=== PATIENT | female | born 1970 | race Caucasian/White ===

== ENCOUNTER → 2016-10-12 | Outpatient (REF) | payer OTHER ==
[~2016-10-12] MED LIST: /ATOR40TA OR; /THIA10TA OR; ACET-654 PO; AMBI12.52 PO; AMLO10TA OR; AMLO10TA2 PO; AMLO10TAB PO; ASPI1TAB PO; ASPI81TA83 OR; ASPI81TA83 PO; ATIV0.5T OR; BACT2CRE EX; BACTROBAN TOP; CALC0.5C OR; CALC1CAP31 PO; CALC600T10 PO; CLON0.1D3 TD; CLON0.2T PO; CORE25TA OR; CORE25TA PO; DIVA500T3 PO; DOXY100T OR; DRIS50002 PO; FERR325T PO; FLEXERIL PO; FOLI1TAB OR; FOLI1TAB PO; FOLITAB11 PO; HYDR25TA7 PO; HYDR50TA7 PO; IMOD2TAB14 PO; KEPP500T6 PO; KLON1TAB PO; LISI20TA PO; LOPR50TA OR; LOPR50TA PO; MULTIVIT OR; MULTIVIT PO; MULTTAB4 PO; NICO14DI3 TD; NICO21DI4 TD; No Historical Meds; PAXI20TA OR; PAXI20TA PO; POTA-77 PO; RENV2TAB PO; SIMV20TA2 PO; THIA100T OR; THIA50CA PO; TRAZ50TA OR; VITA100T2 PO; ZOCO20TA PO; ZOLO100T PO; ZOLO50TA OR; chlorthalidone PO
[2016-10-12 12:32] LABS: CALCIUM LEVEL 9.8 MG/DL (8.5-10.1); CREATININE FOR GFR 2.28 MG/DL (0.55-1.02); GLOMERULAR FILTRATION RATE 24.3 (>58); POTASSIUM SERUM 4.7 MEQ/L (3.5-5.1)
== END ==
LOC: M SFHCPLAZ 09:55
PROVIDERS: ATTEND Family Medicine
DX: I15.9 Secondary hypertension, unspecified (principal)

== ENCOUNTER → 2017-01-23 | Outpatient (REF) | payer OTHER ==
[~2017-01-23] MED LIST changes: -IMOD2TAB14 PO; +IMOD2TAB16 PO
[2017-01-26 00:06] LABS: IgA ULTRASENSITIVE 150.4 mg/dL (72-321)
== END ==
LOC: M SFHCPLAZ 10:54
PROVIDERS: ATTEND Family Medicine
DX: K58.0 Irritable bowel syndrome with diarrhea (principal)

== ENCOUNTER → 2017-07-08 | Outpatient (REF) | payer OTHER ==
[~2017-07-08] MED LIST changes: -CALC600T10 PO; +CALC600T31 PO; +FERR1TAB8 PO; -FERR325T PO; +KEPP1TAB PO; -KEPP500T6 PO
[2017-07-08 16:28] LABS: CALCIUM LEVEL 9.8 MG/DL (8.5-10.1); CREATININE FOR GFR 2.02 MG/DL (0.55-1.02); GLOMERULAR FILTRATION RATE 27.9 (>58); POTASSIUM SERUM 4.8 MEQ/L (3.5-5.1)
== END ==
LOC: M SFHCPLAZ 14:57
PROVIDERS: ATTEND Family Medicine
DX: I12.9 Hypertensive chronic kidney disease with stage 1 through stage 4 chronic kidney disease, or unspecified chronic kidney disease (principal)

== ENCOUNTER → 2017-07-10 | Outpatient (CLI) | payer OTHER ==
--- NOTE | 2017-07-10 10:12 | REP ---
Bilateral screening digital mammogram: There are no palpable abnormalities or other breast complaints. The patient states she/he had a clinical breast exam in June 2017. Comparison is 05/07/2016. There are no other comparisons. There is extremely dense heterogeneous breast parenchyma, unchanged. This may lower the sensitivity of mammography. There are benign calcifications. There has been no interval development of masses, areas of structural distortion or clusters of microcalcifications typical of malignancy. Impression: There is no evidence of malignancy. BI-RADS category 2 benign findings. The patient should have a repeat mammogram in 1 year. This mammogram was interpreted with the aid of an FDA-approved computer-aided detection system. A. Negative x-ray reports should not delay biopsy if a dominant or clinically suspicious mass is present. B. Four to eight percent of cancers are not identified by x-ray. C. Adenosis and dense breasts may obscure an underlying neoplasm. The patient letter being requested is M1 dense breasts . Signed by Ha Jesus MD 07/10/2017 07:54 P
== END ==
LOC: M WHC 07:32
PROVIDERS: ATTEND Nurse Practitioner Family
DX: Z12.31 Encounter for screening mammogram for malignant neoplasm of breast (principal)

== ENCOUNTER → 2017-11-20 | Outpatient (REF) | payer OTHER ==
[2017-11-20 11:52] LABS: TOTAL 25(OH) VITAMIN D 14.2 NG/ML (30.0-100.0)
== END ==
LOC: M SFHCPLAZ 08:58
DX: E55.9 Vitamin D deficiency, unspecified (principal)
CPT/HCPCS: 82306

== ENCOUNTER → 2018-08-11 | Outpatient (REF) | payer OTHER ==
[2018-08-11 22:31] LABS: CHLAMYDIA DNA AMPLIFICATION NEGATIVE (NEGATIVE); GC DNA AMPLIFICATION NEGATIVE (NEGATIVE)
== END ==
LOC: M SFHCWAGY 15:42
DX: Z11.3 Encounter for screening for infections with a predominantly sexual mode of transmission (principal)

== ENCOUNTER → 2019-01-07 | Outpatient (CLI) | payer OTHER ==
[~2019-01-07] MED LIST changes: -/ATOR40TA OR; -AMLO10TA2 PO; +AMLO10TA5 PO; -ASPI1TAB PO; +ASPI81TA26 PO; -CALC0.5C OR; +CALC0.5C14 OR; -DIVA500T3 PO; +DIVA500T94 PO; -DRIS50002 PO; +DRIS50003 PO; +LIPI1TAB2 OR; -VITA100T2 PO; +VITA100T8 PO
--- NOTE | 2019-01-07 15:15 | REPMRS ---
Patient History The patient states she had a clinical breast exam in 12/2018. No known family history of cancer. Digital Woman Screen Mammo: January 07, 2019 - Exam #: [id number] Bilateral CC and MLO view(s) were taken. Technologist: Gin Regan, Technologist Prior study comparison: July 10, 2017, digital woman screen mammo performed at [facility]. May 07, 2016, digital woman screen mammo performed at [facility]. FINDINGS: The breast tissue is extremely dense which could obscure a lesion on mammography. There is an extremely dense symmetrical pattern of residual fibroglandular tissue. There has been no change in the appearance of the mammogram from the previous studies. There is no interval development of dominant mass, archetectural distortion, or microcalcific cluster suggestive of malignancy. 3-D tomosynthesis shows no additional findings. Assessment: BI-RADS/ACR category 1 mammogram. Negative Mammogram. Recommendation Routine screening mammogram of both breasts in 1 year (for women over age 40). This patient's Lifetime Breast Cancer RIsk is estimated at 10.7 %. This mammogram was interpreted with the aid of an FDA-approved computer-aided dectection system. Electronically Signed By: Bj Finney MD 01/07/19 0972
== END ==
LOC: M WHC 09:47
PROVIDERS: ATTEND Nurse Practitioner Family
DX: Z12.31 Encounter for screening mammogram for malignant neoplasm of breast (principal)

== ENCOUNTER → 2019-01-07 | Outpatient (REF) | payer OTHER ==
[2019-01-07 14:24] LABS: HEPATITIS B SURFACE ANTIGEN NEGATIVE (NEGATIVE); HIV 1&2 SCREEN CENTAUR NEGATIVE (NEGATIVE)
[2019-01-07 15:09] LABS: CHLAMYDIA DNA AMPLIFICATION NEGATIVE (NEGATIVE); GC DNA AMPLIFICATION NEGATIVE (NEGATIVE)
[2019-01-09 14:12] LABS: HPV HYBRID CAPTURE II Negative (Negative)
== END ==
LOC: M SFHCWAGY 11:08
PROVIDERS: ATTEND Nurse Practitioner Family
DX: Z11.3 Encounter for screening for infections with a predominantly sexual mode of transmission (principal); Z12.4 Encounter for screening for malignant neoplasm of cervix

== ENCOUNTER → 2019-03-07 | Outpatient (CLI) | payer OTHER ==
[2019-03-07 10:21] LABS: BASO % 0.3 % (0.0-1.0); EOS # 0.1 10^3/uL (0.0-0.50); HEMATOCRIT 46.5 % (36.0-47.0); HEMOGLOBIN 15.4 g/dl (12.0-15.5); LYMPH # 1.4 10^3/uL (1.5-4.5); LYMPH % 18.5 % (24.0-44.0); MEAN CORPUSCULAR HEMOGLOBIN 29.9 pg (27.0-33.0); MEAN CORPUSCULAR HGB CONC 33.1 g/dl (32.0-36.5); MEAN CORPUSCULAR VOLUME 90.3 fl (80.0-96.0); MONO # 0.4 10^3/uL (0.0-0.8); MONO % 4.7 % (0.0-5.0); NEUTROPHILS # 5.8 10^3/uL (1.8-7.7); NEUTROPHILS % 75.1 % (36.0-66.0); PLATELET COUNT, AUTOMATED 212 10^3/uL (150-450); RED BLOOD COUNT 5.15 10^6/uL (4.00-5.40); WHITE BLOOD COUNT 7.7 10^3/uL (4.0-10.0)
[2019-03-07 10:49] LABS: ALBUMIN 3.9 GM/DL (3.2-5.2); BILIRUBIN,TOTAL 0.6 MG/DL (0.2-1.0); CALCIUM LEVEL 8.9 MG/DL (8.5-10.1); CREATININE FOR GFR 2.24 MG/DL (0.55-1.30); GLOMERULAR FILTRATION RATE 24.6 (>51); POTASSIUM SERUM 4.9 MEQ/L (3.5-5.1); TOTAL PROTEIN 6.7 GM/DL (6.4-8.2); URIC ACID 7.7 MG/DL (2.6-6.0)
[2019-03-09 11:12] LABS: PTH INTACT 277.7 PG/ML (18.5-88.0); TOTAL 25(OH) VITAMIN D 25.1 NG/ML (30.0-100.0)
== END ==
LOC: M LAB 09:30
PROVIDERS: ATTEND Student in an Organized Health Care Education/Training Program
DX: I16.0 Hypertensive urgency (principal); N18.4 Chronic kidney disease, stage 4 (severe)

== ENCOUNTER → 2020-03-02 | Outpatient (CLI) | payer OTHER ==
[~2020-03-02] MED LIST changes: -LISI20TA PO; +LISI20TA19 PO; +SIMV20TA22 PO
--- NOTE | 2020-03-02 11:24 | REPMRS ---
Patient History The patient states she had a clinical breast exam in February 2020. No known family history of cancer. 3D TOMOSYNTHESIS WAS PERFORMED. [facility] lifetime risk for breast cancer is 10.5%. NESTOR Manuel Digital Woman Screen Mammo: March 02, 2020 - Exam #: [id number] Bilateral CC and MLO view(s) were taken. Technologist: Marietta Rodriguez, Technologist Prior study comparison: January 07, 2019, bilateral digital woman screen mammo performed at [facility]. July 10, 2017, digital woman screen mammo performed at [facility]. FINDINGS: The breast tissue is heterogeneously dense. This may lower the sensitivity of mammography. There has been no change in the appearance of the mammogram from the prior studies. There is a moderate amount of residual fibroglandular tissue which is fairly symmetric. There is no interval development of dominant mass, areas of architectural distortion, or clustered microcalcification typical of malignancy. Assessment: BI-RADS/ACR category 1 mammogram. Negative Mammogram. Recommendation Routine screening mammogram in 1 year (for women over age 40). This mammogram was interpreted with the aid of an FDA-approved computer-aided dectection system. Electronically Signed By: Ha Altamirano MD 03/02/20 [id number]
== END ==
LOC: M WHC 09:21
PROVIDERS: ATTEND Nurse Practitioner Family
DX: Z12.31 Encounter for screening mammogram for malignant neoplasm of breast (principal)

== ENCOUNTER → 2020-10-31 | Outpatient (REF) | payer OTHER ==
[~2020-10-31] MED LIST changes: -AMLO10TA5 PO; +AMLO1TAB25 PO; -LISI20TA19 PO; +LISI20TA35 PO
[2020-10-31 18:29] LABS: TOTAL PROTEIN 7.5 GM/DL (6.4-8.2)
[2020-11-02 12:33] LABS: ALBUMIN 4.69 GM/DL (3.29-5.55); ALBUMIN % 62.5 % (55.8-66.1); ALPHA-1-GLOBULIN % 4.9 % (2.9-4.9); ALPHA-1-GLOBULINS 0.37 GM/DL (0.17-0.41); ALPHA-2-GLOBULINS 0.85 GM/DL (0.42-0.99); ALPHA-2-GLOBULINS % 11.3 % (7.1-11.8); BETA-1-GLOBULINS % 6.4 % (4.7-7.2); BETA-2-GLOBULINS % 4.4 % (3.2-6.5); GAMMA GLOBULIN % 10.5 % (11.1-18.8)
[2020-11-02 12:34] LABS: BETA-1-GLOBULINS 0.48 GM/DL (0.28-0.60); BETA-2-GLOBULINS 0.33 GM/DL (0.19-0.55); GAMMA GLOBULINS 0.79 GM/DL (0.65-1.58)
[2020-11-02 18:07] LABS: FREE KAPPA LIGHT CHAINS SERUM 33.3 mg/L (3.3-19.4); FREE LAMBDA LIGHT CHAINS SERUM 25.2 mg/L (5.7-26.3); KAPPA/LAMBDA RATIO SERUM 1.32 (0.26-1.65)
== END ==
LOC: M LAB REF 16:56
PROVIDERS: ATTEND Internal Medicine Nephrology
DX: N18.4 Chronic kidney disease, stage 4 (severe) (principal); R80.1 Persistent proteinuria, unspecified

== ENCOUNTER → 2021-07-11 | Outpatient (REF) | payer OTHER | LOC: M LAB REF 13:24 | PROVIDERS: ATTEND Nurse Practitioner Family | DX: N18.4 Chronic kidney disease, stage 4 (severe) (principal) ==

== ENCOUNTER 2021-08-19 08:39 | Emergency (ER) | payer OTHER ==
[~2021-08-19] VITALS: Ht 162.6 cm; Wt 48.2 kg
--- OUTSIDE RECORDS SUMMARY | 2021-08-19 08:48 | CCD ---
Author Author [facility] Organization [facility] Address Unknown Phone Unavailable Care Team Providers Care Orthotist Prosthetist Name Role Phone Pratik Gray Unavailable PROBLEMS Type Condition ICD9-CM Code SDS12-IT Code Onset Dates Condition S tatus W/U Status Risk SNOMED Code Notes Problem Renal hypertension I12.9 Active confirmed 2 0874620 Problem Secondary hyperparathyroidism (of renal origin) N2 5.81 Active confirmed 24839114 Problem Hyperlipidemia E78.5 Active confirmed 72368 004 Problem Irritable bowel syndrome with diarrhea K58.0 A ctive confirmed 145206443 Problem Anxiety and depression F41.8 Active confirmed 922707736 Problem Social anxiety disorder F40.10 Active confirmed 63067568 Problem Cigarette nicotine dependence without complication F17.210 Active confirmed 82256950 Problem Chronic kidney disease, stage IV (severe) N18.4 Active confirmed 030400329 Problem Decreased visual acuity H54.7 Active confirmed 36588478 Problem Alcohol abuse F10.10 Active confirmed 756023 05 Problem Vitamin D deficiency E55.9 Active confirmed 11154449 Problem Seizure disorder G40.909 Active confirmed 12 9337969 Problem Other sequelae of cerebral infarction I69.398 Ac tive confirmed 419008234811612 Problem Seasonal allergies J30.2 Active confirmed 4 40555698 ALLERGIES Allergen (clinical drug ingredient) Drug/Non Drug Allergy do cumented on EMR Reaction Allergy Type Onset Date Status hazelnuts gout Non Drug Allergy Active Morphine Sulfate Confusion Drug Allergy Active Cashews Sick to stomach Non Drug Allergy Act usha ENCOUNTERS from 1968 to 2021-06-29 Encounter Location Date Provider Diagnosis [facility] GME Resident [address] [phone] [place] [address] 27 May, 2021 Pratik Isaac IMMUNIZATIONS Vaccine Route Administration Date Status Pneumococcal Adult 0.5mL Pneumovax 23 IM Intramuscular Apr 30, 018 Administered TDAP 0.5mL (Boostrix) IM Intramuscular February 16, 2014 Administe red TD Adult 0.5mL Tetanus Unknown February 16, 2014 Pending Influenza 6mo & up Fluzone IM Intramuscular Sep 12, 2018 Admi nistered Influenza 6mo & up Fluzone Unknown Jul 10, 2017 Other s Influenza 6mo & up Fluzone IM Intramuscular Jul 08, 2017 Admi nistered Influenza 6mo & up Fluzone IM Intramuscular Jul 16, 2016 Admi nistered Influenza 6mo & up Fluzone IM Intramuscular Oct 22, 2014 Admi nistered SOCIAL HISTORY Tobacco Use: Social History Observation Description Date Details (start date - stop date) Current Smoker Sex Assigned At : Social History Observation Description Sex Assigned At Unknown Audit Question Answer Notes Total Score: 0 Interpretation: Alcohol Education Language: Question Answer Notes Languages spoken: Nepali Buddhism: Question Answer Notes Buddhism 08 Confucianist Sexual Hx: Question Answer Notes Had sex in the last 12 months (vaginal, oral, or anal)? Yes LMP: 05/12/2017 Have you ever had an STD? No Prevention Strategies discussed: Condoms with Men only Use protection? Yes How often? All of the time Drug and Alcohol Question Answer Notes Total Score: 0 Interpretation: No problems reported Alcohol Screening: Question Answer Notes Did you have a drink containing alcohol in the past year? No Points 0 Interpretation Negative Tobacco Use: Question Answer Notes Are you a: current smoker Patient counseled on the dangers of tobacco use and urged to quit: 03/02/2020 How many cigarettes a day do you smoke? 6-10 Are you interested in quitting? Not ready to quit REASON FOR REFERRAL No Information VITAL SIGNS No information MEDICATIONS Medication SIG (Take, Route, Frequency, Duration) Notes Start Da te End Date Status Zoloft 100 MG 1 tablet Orally Once a day for 30 days Active Aspir-81 81 MG 1 tablet Orally Once a day Active Vitamin B-1 100 MG 1 tablet Orally Once a day for 30 day(s) Active Divalproex Sodium 500 MG 1 tab Orally twice daily for 90 Not-Taking amLODIPine Besylate 10 MG 1 tablet Orally Once a day for 90 days Active Blood Pressure Monitor - as directed; needs easy bp r eading device for small arms as directed, ICD10: I12.9 bid for 1000 days Feb, Not-Taking hydrALAZINE HCl 25 mg 1 tablet with food Orally twice daily for 90 Active Triamcinolone Acetonide 0.1 % 1 application Externally Twice a day for 14 days Sep, Active Labetalol HCl 100 MG 2 tablets in the morning and 1 at night Orally Twice a day for 90 days Active Lisinopril 20 MG 1 tablet Orally Once a day for 30 day(s) Apr, Active PROCEDURES No Information RESULTS No Results REASON FOR VISIT who's my new doctor MEDICAL (GENERAL) HISTORY Type Description Date Medical History Hypertension Goal < 140/90 Medical History Kidney failure from hypertension Medical History CVA x 2 Medical History Hyperlipidemia (ASCVD 1.7% 03/2016) Medical History Elevated PTH likely secondary to kidney disease Medical History Hypokalemia Medical History Hx of cellulitis in left arm after IV in sertion Medical History Seizure Disorder: last one 2015 Medical History Hx of Genital Warts Surgical History Denies surgery Hospitalization History [facility] for CVA spec ialist - there for about two weeks, started rehab 08/19/2011 Hospitalization History [facility] for one night and was transferre d to [facility] 08/17/11 Hospitalization History seizures 04/17/2014 Goals Section No Information Health Concerns No Information MEDICAL EQUIPMENT No Information MENTAL STATUS No Information FUNCTIONAL STATUS No Information ASSESSMENTS No Information PLAN OF TREATMENT Medication Medication Name Sig Start Date Stop Date Lisinopril 20 MG 1 tablet Orally Once a day for 30 day(s) Apr Insurance Providers Payer Name Payer Address Payer Phone Insured Name Patient Relati onship to Insured Coverage Start Date Coverage End Date [facility] COMMUN[facility] PLAN [facility] [address] [facility] [phone] CHIVO SHEIKH self
--- OUTSIDE RECORDS SUMMARY | 2021-08-19 08:48 | CCD ---
Author Author [facility] Organization [facility] Address Unknown Phone Unavailable Care Team Providers Care Estimator Paperboard Boxes Name Role Phone Pratik Gray Unavailable PROBLEMS Type Condition ICD9-CM Code TAZ32-EB Code Onset Dates Condition S tatus W/U Status Risk SNOMED Code Notes Problem Renal hypertension I12.9 Active confirmed 2 8193726 Problem Secondary hyperparathyroidism (of renal origin) N2 5.81 Active confirmed 53034006 Problem Hyperlipidemia E78.5 Active confirmed 59811 004 Problem Irritable bowel syndrome with diarrhea K58.0 A ctive confirmed 705254905 Problem Anxiety and depression F41.8 Active confirmed 327015894 Problem Social anxiety disorder F40.10 Active confirmed 98405126 Problem Cigarette nicotine dependence without complication F17.210 Active confirmed 40668710 Problem Chronic kidney disease, stage IV (severe) N18.4 Active confirmed 382149657 Problem Decreased visual acuity H54.7 Active confirmed 23111736 Problem Alcohol abuse F10.10 Active confirmed 943073 05 Problem Vitamin D deficiency E55.9 Active confirmed 58302905 Problem Seizure disorder G40.909 Active confirmed 12 2739827 Problem Other sequelae of cerebral infarction I69.398 Ac tive confirmed 006761692650263 Problem Seasonal allergies J30.2 Active confirmed 4 95304077 ALLERGIES Allergen (clinical drug ingredient) Drug/Non Drug Allergy do cumented on EMR Reaction Allergy Type Onset Date Status hazelnuts gout Non Drug Allergy Active Morphine Sulfate Confusion Drug Allergy Active Cashews Sick to stomach Non Drug Allergy Act usha ENCOUNTERS from 1968 to 2021-05-26 Encounter Location Date Provider Diagnosis [facility] GME Resident [address] [phone] [place] [address] Apr, Pratik Isaac IMMUNIZATIONS Vaccine Route Administration Date Status Pneumococcal Adult 0.5mL Pneumovax 23 IM Intramuscular Apr 30 018 Administered TDAP 0.5mL (Boostrix) IM Intramuscular [...] Education Language: Question Answer Notes Languages spoken: Greek Taoism: Question Answer Notes Taoism 08 Presybeterian Sexual Hx: Question Answer Notes Had sex [...] Information RESULTS No Results REASON FOR VISIT Refill MEDICAL (GENERAL) HISTORY Type Description Date Medical History Hypertension Goal < 140/90 Medical History Kidney failure from hypertension Medical History CVA x 2 Medical History Hyperlipidemia (ASCVD 1.7% 03/2016) Medical History Elevated PTH likely secondary to kidney disease Medical History Hypokalemia Medical History Hx of cellulitis in left arm after IV in sertion Medical History Seizure Disorder: last 2015 Medical History Hx of Genital Warts Surgical History Denies surgery Hospitalization History [facility] for CVA spec ialist - there for about two weeks, started rehab 08/19/2011 Hospitalization History [facility] for one night and was [facility] 08/[facility]/11 Hospitalization History seizures 04/17/2014 Goals Section [...] Insured Coverage Start Date Coverage End Date [facility] COMMUNITY PLAN [facility] [address] [facility] [phone] CHIVO SHEIKH self
--- OUTSIDE RECORDS SUMMARY | 2021-08-19 08:48 | CCD ---
Author Author [facility] Organization [facility] Address Unknown Phone Unavailable Care Team Providers Care Scraper Loader Operator Name Role Phone Markos Holder Unavailable PROBLEMS Type Condition ICD9-CM Code PTN98-UD Code Onset Dates Condition S tatus W/U Status Risk SNOMED Code Notes Problem Renal hypertension I12.9 Active confirmed 2 1440901 Problem Secondary hyperparathyroidism (of renal origin) N2 5.81 Active confirmed 77962853 Problem Hyperlipidemia E78.5 Active confirmed 16014 004 Problem Irritable bowel syndrome with diarrhea K58.0 A ctive confirmed 366349356 Problem Anxiety and depression F41.8 Active confirmed 993737104 Problem Social anxiety disorder F40.10 Active confirmed 48653183 Problem Cigarette nicotine dependence without complication F17.210 Active confirmed 93001143 Problem Chronic kidney disease, stage IV (severe) N18.4 Active confirmed 355204472 Problem Decreased visual acuity H54.7 Active confirmed 08391445 Problem Alcohol abuse F10.10 Active confirmed 805363 05 Problem Vitamin D deficiency E55.9 Active confirmed 86623516 Problem Seizure disorder G40.909 Active confirmed 12 8778338 Problem Other sequelae of cerebral infarction I69.398 Ac tive confirmed 985685973007398 Problem Seasonal allergies J30.2 Active confirmed 4 19071958 ALLERGIES Allergen (clinical drug ingredient) Drug/Non Drug Allergy do cumented on EMR Reaction Allergy Type Onset Date Status Tree Nuts Sick to stomach Drug Allergy Active Morphine Sulfate Confusion Drug Allergy Active hazelnuts gout Non Drug Allergy Active ENCOUNTERS from 1968 to 2021-08-15 Encounter Location Date Provider Diagnosis [facility] GME Resident [address] [phone] [place] [address] Jun,1 Markos [facility] IMMUNIZATIONS Vaccine Route Administration Date Status Pneumococcal Adult 0.5mL Pneumovax 23 IM Intramuscular Apr 30, 018 Administered TDAP 0.5mL (Boostrix) IM Intramuscular February 16, 2014 Administe red TD PED 0.5mL Tetanus Unknown February 16, 2014 Pending [...] Education Language: Question Answer Notes Languages spoken: Kyrgyz Protestant: Question Answer Notes Protestant 08 Congregational Sexual Hx: Question Answer Notes Had sex [...] Information RESULTS No Results REASON FOR VISIT confused MEDICAL (GENERAL) HISTORY Type Description Date Medical [...] Warts Surgical History Denies surgery Hospitalization History [facility] for CVA spec ialist - there for about two weeks, started rehab 08/19/2011 Hospitalization History [facility] for one night and was transferre d to [facility] 08/17/11 Hospitalization History seizures 04/17/2014 Goals Section No Information Health Concerns No Information MEDICAL EQUIPMENT No Information MENTAL STATUS No Information FUNCTIONAL STATUS No Information ASSESSMENTS No Information PLAN OF TREATMENT Medication Medication Name Sig Start Date Stop Date Lisinopril 20 MG 1 tablet Orally Once a day for 30 day(s) Apr Next Appt Details Provider Name:Sergio Mckay Debbie, 2 021-11-24 08:30:00 AM, [address] , , [place], [address], Insurance Providers Payer Name Payer Address Payer Phone Insured Name Patient Relati onship to Insured Coverage Start Date Coverage End Date [facility] COMMUNITY PLAN [facility] [address] [facility] [phone] CHIVO SHEIKH self
--- OUTSIDE RECORDS SUMMARY | 2021-08-19 08:48 | CCD ---
Author Author [facility] Organization [facility] Address Unknown Phone Unavailable Support Name Relationship Address Phone JOANNA RODRIGUEZ Next Of Kin [address] [facility] [address] [place] [address] REECE PICKERING Next Of Kin [address] [place] [address] DISABLED Next Of Kin Unknown Unavailable UE Next Of Kin Unknown Unavailable [place] [address] ILEANAPARVEZ LELAND Next Of Kin [address] [place] [address] ANUSHAMARCELAYN Next Of Kin [address] [facility] [address] [place] [address] JOANNA RODRIGUEZ ECON [address] [place] [address] Unavailable ileanakim mercedesshua ECON [address] [facility] [address] [place] [address] Unavailable Re-disclosure Warning The records that you are about to access may contain information from federally-assisted alcohol or drug abuse programs. If such information is present, then the following federally mandated warning applies: This information has been disclosed to you from records protected by federal confidentiality rules (42 CFR part 2). The federal rules prohibit you from making any further disclosure of this information unless further disclosure is expressly permitted by the written consent of the person to whom it pertains or as otherwise permitted by 42 CFR part 2. A general authorization for the release of medical or other information is NOT sufficient for this purpose. The Federal rules restrict any use of the information to criminally investigate or prosecute any alcohol or drug abuse patient.The records that you are about to access may contain highly sensitive health information, the redisclosure of which is protected by Article 27-F of the [facility] Public Health law. If you continue you may have access to information: Regarding HIV / AIDS; Provided by facilities licensed or operated by the [facility] Office of Mental Health; or Provided by the [facility] Office for People With Developmental Disabilities. If such information is present, then the following [facility] mandated warning applies: This information has been disclosed to you from confidential records which are protected by state law. State law prohibits you from making any further disclosure of this information without the specific written consent of the person to whom it pertains, or as otherwise permitted by law. Any unauthorized further disclosure in violation of state law may result in a fine or chcf sentence or both. A general authorization for the release of medical or other information is NOT sufficient authorization for further disc losure. Family History Family Member Name Family Member Gender Family Member Status Date o f Status Description Data Source(s) Unknown Unknown Problem [facility] ([facility] Encounters Encounter Providers Location Date Indications Data Source(s ) Unknown [address] [facility] [id number] 07/25/2021 12:00:00 AM EDT eCW1 ([facility]) Unknown [address] [facility] [address] 06/26/2021 12:00:00 AM EDT eCW1 ([facility]) Unknown [address] [facility] [place] [address] 05/22/2021 12:00:00 AM EDT eCW1 ([facility]) Unknown [address] [facility] [place] [address] 05/15/2021 12:00:00 AM EDT eCW1 ([facility]) Unknown [address] [facility] [address] 03/24/2021 12:00:00 AM EDT eCW1 ([facility] Outpatient [address] [facility] [place] [address] 03/20/2021 12:00:00 AM EDT eCW1 ([facility]) Unknown [address] [facility] [place] [address] 03/04/2021 12:00:00 AM EDT eCW1 ([facility]) Unknown [address] [facility] [address] 02/20/2021 12:00:00 AM EDT eCW1 ([facility]) [place] [address] [facility] [place] [address] 02/08/2021 12:00:00 AM EDT eCW1 ([facility]) Unknown [address] [facility] [place] [address] 01/19/2021 12:00:00 AM EDT eCW1 ([facility]) Unknown [address] [facility] [place] [address] 01/10/2021 12:00:00 AM EDT eCW1 ([facility]) [place] [address] [facility] [place] [address] 01/04/2021 12:00:00 AM EDT eCW1 ([facility]) [place] [address] [facility] [place] [address] 12/29/2020 12:00:00 AM EDT eCW1 ([facility]) [place] [address] [facility] [place] [address] 12/26/2020 12:00:00 AM EDT eCW1 ([facility]) [place] [address] [facility] [place] [address] 12/15/2020 12:00:00 AM EDT eCW1 ([facility]) Unknown [address] [facility] [place] [address] 12/14/2020 12:00:00 AM EDT eCW1 ([facility]) Unknown [address] [facility] [place] [address] 12/05/2020 12:00:00 AM EST eCW1 ([facility]) [place] [address] [facility] [place] [address] 11/24/2020 12:00:00 AM EST eCW1 ([facility]) [place] [address] [facility] [place] [address] 11/14/2020 12:00:00 AM EST eCW1 ([facility]) [place] [address] [facility] [place] [address] 11/10/2020 12:00:00 AM EST eCW1 ([facility]) [place] [address] [facility] [place] [address] 10/26/2020 12:00:00 AM EST eCW1 ([facility]) Unknown [address] [facility] [place] [address] 10/14/2020 12:00:00 AM EST eCW1 ([facility]) [place] [address] [facility] [place] [address] 09/19/2020 12:00:00 AM EST eCW1 ([facility]) [place] [address] [facility] [place] [address] 09/12/2020 12:00:00 AM EST eCW1 ([facility]) Immunizations Vaccine Date Status Description Data Source(s) COVID-19 VACCINE Moderna 08/10/2021 12:00:00 AM EST completed [facility] Vaccine Series Complete: YESThis Data wa s Submitted to [facility] Via [employer]. COVID-19 VACCINE Moderna 01/11/2021 12:00:00 AM EDT completed [facility] Vaccine Series Complete: YESThis Data wa s Submitted to [facility] [employer]. COVID-19 VACCINE Moderna 12/14/2020 12:00:00 AM EDT completed [facility] Vaccine Series Complete: NOThis Data was Submitted to [facility] [employer]. Medications Medication Brand Name Start Date Product Form Dose Route Admi nistrative Instructions Pharmacy Instructions Status Indications Reaction Description Data Source(s) Lisinopril 20 MG Oral Tablet Lisinopril 20 MG 05/26/2021 12:00:00 A M EDT 1.0 {tablet} active Lisinopril 20 MG eCW1 ( [facility]) Lisinopril 20 MG Oral Tablet Lisinopril 20 MG 05/26/2021 12:00:00 A M EDT 1.0 {tablet} active Lisinopril 20 MG eCW1 ( [facility]) Lisinopril 20 MG Oral Tablet Lisinopril 20 MG 05/26/2021 12:00:00 A M EDT 1.0 {tablet} active Lisinopril 20 MG eCW1 ( [facility]) 20 mg 05/23/2021 12:00:00 AM EDT tablet 30 TAKE ONE TABLET BY MOUTH EVERY DAY TAKE ONE TABLET BY MOUTH EVERY DAY SOLD: 05/29/2021 [facility] 20 mg 05/23/2021 12:00:00 AM EDT tablet 30 TAKE ONE TABLET BY MOUTH EVERY DAY TAKE ONE TABLET BY MOUTH EVERY DAY SOLD: 07/04/2021 [facility] 10 mg 03/06/2021 12:00:00 AM EDT tablet 30 TAKE ONE TABLET BY MOUTH EVERY DAY TAKE ONE TABLET BY MOUTH EVERY DAY SOLD: 08/10/2021 [facility] 10 mg 03/06/2021 12:00:00 AM EDT tablet 90 TAKE ONE TABLET BY MOUTH EVERY DAY TAKE ONE TABLET BY MOUTH EVERY DAY SOLD: 03/09/2021 [facility] 10 mg 03/06/2021 12:00:00 AM EDT tablet 30 TAKE ONE TABLET BY MOUTH EVERY DAY TAKE ONE TABLET BY MOUTH EVERY DAY SOLD: 05/29/2021 [facility] 100 mg 01/21/2021 12:00:00 AM EDT tablet 270 TAKE TWO TABLETS BY MOUTH EVERY MORNING AND 1 AT NIGHT TAKE TWO TABLETS BY MOUTH EVERY MORNING AND 1 AT NIGHT SOLD: 02/01/2021 [facility] 100 mg 01/21/2021 12:00:00 AM EDT tablet 90 TAKE TWO TABLETS BY MOUTH EVERY MORNING AND 1 AT NIGHT TAKE TWO TABLETS BY MOUTH EVERY MORNING AND 1 AT NIGHT SOLD: 07/04/2021 [facility] 100 mg 01/21/2021 12:00:00 AM EDT tablet 90 TAKE TWO TABLETS BY MOUTH EVERY MORNING AND 1 AT NIGHT TAKE TWO TABLETS BY MOUTH EVERY MORNING AND 1 AT NIGHT SOLD: 05/29/2021 [facility] 100 mg 12/26/2020 12:00:00 AM EDT tablet 90 TAKE TWO TABLETS BY MOUTH EVERY MORNING AND 1 EVERY EVENING TAKE TWO TABLETS BY MOUTH EVERY MORNING AND 1 EVERY EVENING SOLD: 12/27/2020 [facility] 100 mg 12/12/2020 12:00:00 AM EDT tablet 30 TAKE ONE TABLET BY MOUTH EVERY DAY TAKE ONE TABLET BY MOUTH EVERY DAY SOLD: 12/25/2020 [facility] 100 mg 12/12/2020 12:00:00 AM EDT tablet 30 TAKE ONE TABLET BY MOUTH EVERY DAY TAKE ONE TABLET BY MOUTH EVERY DAY SOLD: 02/01/2021 [facility] 100 mg 12/12/2020 12:00:00 AM EDT tablet 30 TAKE ONE TABLET BY MOUTH EVERY DAY TAKE ONE TABLET BY MOUTH EVERY DAY SOLD: 04/18/2021 [facility] 100 mg 12/12/2020 12:00:00 AM EDT tablet 30 TAKE ONE TABLET BY MOUTH EVERY DAY TAKE ONE TABLET BY MOUTH EVERY DAY SOLD: 05/29/2021 [facility] 100 mg 12/12/2020 12:00:00 AM EDT tablet 30 TAKE ONE TABLET BY MOUTH EVERY DAY TAKE ONE TABLET BY MOUTH EVERY DAY SOLD: 08/10/2021 [facility] 100 mg 12/12/2020 12:00:00 AM EDT tablet 30 TAKE ONE TABLET BY MOUTH EVERY DAY TAKE ONE TABLET BY MOUTH EVERY DAY SOLD: 03/09/2021 [facility] Hydralazine Hydrochloride 25 MG Oral Tablet HYDRALAZINE HCL 11/30/2020 12:00:00 AM EST tablet 60 TAKE ONE TABLET BY MOUTH TWI CE A DAY WITH FOOD TAKE ONE TABLET BY MOUTH TWICE A DAY WITH FOOD SOLD: 08/10/2021 [facility] Hydralazine Hydrochloride 25 MG Oral Tablet HYDRALAZINE HCL 11/30/2020 12:00:00 AM EST tablet 60 TAKE ONE TABLET BY MOUTH TWI CE A DAY WITH FOOD TAKE ONE TABLET BY MOUTH TWICE A DAY WITH FOOD SOLD: 03/09/2021 [facility] Hydralazine Hydrochloride 25 MG Oral Tablet HYDRALAZINE HCL 11/30/2020 12:00:00 AM EST tablet 60 TAKE ONE TABLET BY MOUTH TWI CE A DAY WITH FOOD TAKE ONE TABLET BY MOUTH TWICE A DAY WITH FOOD SOLD: 05/29/2021 [facility] Hydralazine Hydrochloride 25 MG Oral Tablet HYDRALAZINE HCL 11/30/2020 12:00:00 AM EST tablet 60 TAKE ONE TABLET BY MOUTH TWI CE A DAY WITH FOOD TAKE ONE TABLET BY MOUTH TWICE A DAY WITH FOOD SOLD: 04/18/2021 [facility] Hydralazine Hydrochloride 25 MG Oral Tablet HYDRALAZINE HCL 11/30/2020 12:00:00 AM EST tablet 60 TAKE ONE TABLET BY MOUTH TWI CE A DAY WITH FOOD TAKE ONE TABLET BY MOUTH TWICE A DAY WITH FOOD SOLD: 12/07/2020 [facility] Hydralazine Hydrochloride 25 MG Oral Tablet HYDRALAZINE HCL 11/30/2020 12:00:00 AM EST tablet 60 TAKE ONE TABLET BY MOUTH TWI CE A DAY WITH FOOD TAKE ONE TABLET BY MOUTH TWICE A DAY WITH FOOD SOLD: 02/01/2021 [facility] 25 mcg (1,000 unit) 11/17/2020 12:00:00 AM EST tablet 15 TAKE ONE TABLET BY MOUTH EVERY OTHER DAY TAKE ONE TABLET BY MOUTH EVERY OTHER DAY SOLD: 02/01/2021 [facility] 25 mcg (1,000 unit) 11/17/2020 12:00:00 AM EST tablet 15 TAKE ONE TABLET BY MOUTH EVERY OTHER DAY TAKE ONE TABLET BY MOUTH EVERY OTHER DAY SOLD: 12/07/2020 [facility] 5 mg 10/31/2020 12:00:00 AM EST tablet 30 TAKE ONE TABLET BY MOUTH EVERY DAY TAKE ONE TABLET BY MOUTH EVERY DAY SOLD: 11/01/2020 [facility] Triamcinolone Acetonide 1 MG/ML Topical Cream Triamcin olone Acetonide 0.1 % Triamcinolone Acetonide 0.1 % 10/26/2020 12:00:00 AM EST 1.0 {appli cation} active Triamcinolone Acetonide 0 .1 % eCW1 ([facility]) Triamcinolone Acetonide 1 MG/ML Topical Cream Triamcin olone Acetonide 0.1 % Triamcinolone Acetonide 0.1 % 10/26/2020 12:00:00 AM EST 1.0 {appli cation} active Triamcinolone Acetonide 0 .1 % eCW1 ([facility]) Triamcinolone Acetonide 1 MG/ML Topical Cream Triamcin olone Acetonide 0.1 % Triamcinolone Acetonide 0.1 % 10/26/2020 12:00:00 AM EST 1.0 {appli cation} active Triamcinolone Acetonide 0 .1 % eCW1 ([facility]) Triamcinolone Acetonide 1 MG/ML Topical Cream Triamcin olone Acetonide 0.1 % Triamcinolone Acetonide 0.1 % 10/26/2020 12:00:00 AM EST 1.0 {appli cation} active Triamcinolone Acetonide 0 .1 % eCW1 ([facility]) 0.1 % 10/26/2020 12:00:00 AM EST cream 15 APPLY TO AFFECTED AREA(S) TWO TIMES A DAY APPLY TO AFFECTED AREA(S) TWO TIMES A DAY SOLD: 10/27/2020 [facility] Triamcinolone Acetonide 1 MG/ML Topical Cream Triamcin olone Acetonide 0.1 % Triamcinolone Acetonide 0.1 % 10/26/2020 12:00:00 AM EST 1.0 {appli cation} active Triamcinolone Acetonide 0 .1 % eCW1 ([facility]) Triamcinolone Acetonide 1 MG/ML Topical Cream Triamcin olone Acetonide 0.1 % Triamcinolone Acetonide 0.1 % 10/26/2020 12:00:00 AM EST 1.0 {appli cation} active Triamcinolone Acetonide 0 .1 % eCW1 ([facility]) Triamcinolone Acetonide 1 MG/ML Topical Cream Triamcin olone Acetonide 0.1 % Triamcinolone Acetonide 0.1 % 10/26/2020 12:00:00 AM EST 1.0 {appli cation} active Triamcinolone Acetonide 0 .1 % eCW1 ([facility]) Triamcinolone Acetonide 1 MG/ML Topical Cream Triamcin olone Acetonide 0.1 % Triamcinolone Acetonide 0.1 % 10/26/2020 12:00:00 AM EST 1.0 {appli cation} active Triamcinolone Acetonide 0 .1 % eCW1 ([facility]) Triamcinolone Acetonide 1 MG/ML Topical Cream Triamcin olone Acetonide 0.1 % Triamcinolone Acetonide 0.1 % 10/26/2020 12:00:00 AM EST 1.0 {appli cation} active Triamcinolone Acetonide 0 .1 % eCW1 ([facility]) Triamcinolone Acetonide 1 MG/ML Topical Cream Triamcin olone Acetonide 0.1 % Triamcinolone Acetonide 0.1 % 10/26/2020 12:00:00 AM EST 1.0 {appli cation} active Triamcinolone Acetonide 0 .1 % eCW1 ([facility]) Triamcinolone Acetonide 1 MG/ML Topical Cream Triamcin olone Acetonide 0.1 % Triamcinolone Acetonide 0.1 % 10/26/2020 12:00:00 AM EST 1.0 {appli cation} active Triamcinolone Acetonide 0 .1 % eCW1 ([facility]) Triamcinolone Acetonide 1 MG/ML Topical Cream Triamcin olone Acetonide 0.1 % Triamcinolone Acetonide 0.1 % 10/26/2020 12:00:00 AM EST 1.0 {appli cation} active Triamcinolone Acetonide 0 .1 % eCW1 ([facility]) Triamcinolone Acetonide 1 MG/ML Topical Cream Triamcin olone Acetonide 0.1 % Triamcinolone Acetonide 0.1 % 10/26/2020 12:00:00 AM EST 1.0 {appli cation} active Triamcinolone Acetonide 0 .1 % eCW1 ([facility]) Triamcinolone Acetonide 1 MG/ML Topical Cream Triamcin olone Acetonide 0.1 % Triamcinolone Acetonide 0.1 % 10/26/2020 12:00:00 AM EST 1.0 {appli cation} active Triamcinolone Acetonide 0 .1 % eCW1 ([facility]) Triamcinolone Acetonide 1 MG/ML Topical Cream Triamcin olone Acetonide 0.1 % Triamcinolone Acetonide 0.1 % 10/26/2020 12:00:00 AM EST 1.0 {appli cation} active Triamcinolone Acetonide 0 .1 % eCW1 ([facility]) Triamcinolone Acetonide 1 MG/ML Topical Cream Triamcin olone Acetonide 0.1 % Triamcinolone Acetonide 0.1 % 10/26/2020 12:00:00 AM EST 1.0 {appli cation} active Triamcinolone Acetonide 0 .1 % eCW1 ([facility]) Triamcinolone Acetonide 1 MG/ML Topical Cream Triamcin olone Acetonide 0.1 % Triamcinolone Acetonide 0.1 % 10/26/2020 12:00:00 AM EST 1.0 {appli cation} active Triamcinolone Acetonide 0 .1 % eCW1 ([facility]) Triamcinolone Acetonide 1 MG/ML Topical Cream Triamcin olone Acetonide 0.1 % Triamcinolone Acetonide 0.1 % 10/26/2020 12:00:00 AM EST 1.0 {appli cation} active Triamcinolone Acetonide 0 .1 % eCW1 ([facility]) Triamcinolone Acetonide 1 MG/ML Topical Cream Triamcin olone Acetonide 0.1 % Triamcinolone Acetonide 0.1 % 10/26/2020 12:00:00 AM EST 1.0 {appli cation} active Triamcinolone Acetonide 0 .1 % eCW1 ([facility]) Triamcinolone Acetonide 1 MG/ML Topical Cream Triamcin olone Acetonide 0.1 % Triamcinolone Acetonide 0.1 % 10/26/2020 12:00:00 AM EST 1.0 {appli cation} active Triamcinolone Acetonide 0 .1 % eCW1 ([facility]) Triamcinolone Acetonide 1 MG/ML Topical Cream Triamcin olone Acetonide 0.1 % Triamcinolone Acetonide 0.1 % 10/26/2020 12:00:00 AM EST 1.0 {appli cation} active Triamcinolone Acetonide 0 .1 % eCW1 ([facility]) Triamcinolone Acetonide 1 MG/ML Topical Cream Triamcin olone Acetonide 0.1 % Triamcinolone Acetonide 0.1 % 10/26/2020 12:00:00 AM EST 1.0 {appli cation} active eCW1 ([facility]) 20 mg 10/14/2020 12:00:00 AM EST tablet 30 TAKE ONE TABLET BY MOUTH EVERY DAY TAKE ONE TABLET BY MOUTH EVERY DAY SOLD: 11/08/2020 [facility] 20 mg 10/14/2020 12:00:00 AM EST tablet 30 TAKE ONE TABLET BY MOUTH EVERY DAY TAKE ONE TABLET BY MOUTH EVERY DAY SOLD: 03/09/2021 [facility] 20 mg 10/14/2020 12:00:00 AM EST tablet 30 TAKE ONE TABLET BY MOUTH EVERY DAY TAKE ONE TABLET BY MOUTH EVERY DAY SOLD: 10/17/2020 [facility] 20 mg 10/14/2020 12:00:00 AM EST tablet 30 TAKE ONE TABLET BY MOUTH EVERY DAY TAKE ONE TABLET BY MOUTH EVERY DAY SOLD: 04/18/2021 [facility] 20 mg 10/14/2020 12:00:00 AM EST tablet 8 TAKE ONE TABLET BY MOUTH EVERY DAY TAKE ONE TABLET BY MOUTH EVERY DAY SOLD: 12/07/2020 [facility] Lisinopril 20 MG Oral Tablet LISINOPRIL 10/14/2020 12:00:00 AM EST tab let 30 TAKE ONE TABLET BY MOUTH EVERY DAY TAKE ONE TABLET BY MOUTH EVERY DAY SOLD: 02/01/2021 [facility] 500 mg 10/14/2020 12:00:00 AM EST tablet,delayed release (DR/EC) 180 TAKE ONE TABLET BY MOUTH TWICE A DAY TAKE ONE TABLET BY MOUTH TWICE A DAY SOLD: 10/17/2020 [facility] Hydralazine Hydrochloride 25 MG Oral Tablet HYDRALAZINE HCL 10/10/2020 12:00:00 AM EST tablet 180 TAKE ONE TABLET BY MOUTH THR EE TIMES A DAY WITH FOOD TAKE ONE TABLET BY MOUTH THREE TIMES A DAY WITH FOOD SOLD: 10/17/2020 [facility] Labetalol hydrochloride 200 MG Oral Tablet Labetalol H Cl 200 MG Labetalol HCl 200 MG 09/19/2020 12:00:00 AM EST 1.0 {tablet} activ e Labetalol HCl 200 MG eCW1 ([facility]) 10 mg 09/19/2020 12:00:00 AM EST tablet 30 TAKE ONE TABLET BY MOUTH EVERY DAY TAKE ONE TABLET BY MOUTH EVERY DAY SOLD: 02/01/2021 [facility] 10 mg 09/19/2020 12:00:00 AM EST tablet 30 TAKE ONE TABLET BY MOUTH EVERY DAY TAKE ONE TABLET BY MOUTH EVERY DAY SOLD: 09/19/2020 [facility] 200 mg 09/19/2020 12:00:00 AM EST tablet 28 TAKE ONE TABLET BY MOUTH TWICE A DAY FOR 14 DAYS TAKE ONE TABLET BY MOUTH TWICE A DAY FOR 14 DAYS SOLD: 10/27/2020 [facility] 10 mg 09/19/2020 12:00:00 AM EST tablet 30 TAKE ONE TABLET BY MOUTH EVERY DAY TAKE ONE TABLET BY MOUTH EVERY DAY SOLD: 11/08/2020 [facility] 10 mg 09/19/2020 12:00:00 AM EST tablet 30 TAKE ONE TABLET BY MOUTH EVERY DAY TAKE ONE TABLET BY MOUTH EVERY DAY SOLD: 12/25/2020 [facility] 200 mg 09/19/2020 12:00:00 AM EST tablet 28 TAKE ONE TABLET BY MOUTH TWICE A DAY FOR 14 DAYS TAKE ONE TABLET BY MOUTH TWICE A DAY FOR 14 DAYS SOLD: 09/19/2020 [facility] Labetalol hydrochloride 100 MG Oral Tablet LABETALOL HCL 09/15/2020 12:00:00 AM EST tablet 16 TAKE ONE TABLET BY MOUTH TWI CE A DAY TAKE ONE TABLET BY MOUTH TWICE A DAY SOLD: 12/07/2020 [facility] Labetalol hydrochloride 100 MG Oral Tablet LABETALOL HCL 09/15/2020 12:00:00 AM EST tablet 60 TAKE ONE TABLET BY MOUTH TWI CE A DAY TAKE ONE TABLET BY MOUTH TWICE A DAY SOLD: 09/19/2020 [facility] Labetalol hydrochloride 100 MG Oral Tablet LABETALOL HCL 09/15/2020 12:00:00 AM EST tablet 60 TAKE ONE TABLET BY MOUTH TWI CE A DAY TAKE ONE TABLET BY MOUTH TWICE A DAY SOLD: 11/08/2020 [facility] 25 mcg (1,000 unit) 08/17/2020 12:00:00 AM EST tablet 30 TAKE ONE TABLET BY MOUTH EVERY DAY TAKE ONE TABLET BY MOUTH EVERY DAY SOLD: 08/21/2020 [facility] Insurance Providers Payer name Policy type / Coverage type Policy ID Covered republican ID Covered republican's relationship to graham Policy Graham Plan Information [facility] COMMUNITY PLAN [facility] [id number] SP [id number] [facility] O [id number] S [id number] ANSI-Medicaid [id number] ANSI-Medicaid [id number] ANSI-Medicaid [id number] ANSI-Medicaid [id number] ANSI-Medicaid [id number] ANSI-Medicaid [id number] ANSI-Medicaid [id number] ANSI-Medicaid [id number] ANSI-Medicaid [id number] ANSI-Medicaid [id number] ANSI-Medicaid [id number] ANSI-Medicaid [id number] ANSI-Medicaid [id number] ANSI-Medicaid [id number] [employer] COMMUNITY PLAN MCDO [id number] SP [id number] [facility] O [id number] S [id number] [facility] COMM[facility] [id number] SP [id number] [facility] Community Plan Health Maintenance Organization (HMO) [id number] [facility] [id number] SP [id number] [employer] PLAN [id number] SP [id number] HMO BLUE [id number] SP [id number] Problems, Conditions, and Diagnoses Code Display Name Description Problem Type Effective Dates Data Source(s) H54.7 [id number] Decreased visual acuity Problem 10/26/2020 1 2:00:00 AM EST eCW1 ([facility]) Surgeries/Procedures No Information Results No Information Social History Code Duration Value Status Description Data Source(s ) Smoking 07/15/2021 12:00:00 AM EDT Current Smoker completed Curre nt Smoker eCW1 ([facility]) Smoking 03/20/2021 12:00:00 AM EDT Current Smoker completed Curre nt Smoker eCW1 ([facility]) Smoking 03/20/2021 12:00:00 AM EDT Current Smoker completed Curre nt Smoker eCW1 ([facility]) Smoking 03/20/2021 12:00:00 AM EDT Current Smoker completed Curre nt Smoker eCW1 ([facility]) Smoking 03/20/2021 12:00:00 AM EDT Current Smoker completed Curre nt Smoker eCW1 ([facility]) Smoking 03/20/2021 12:00:00 AM EDT Current Smoker completed Curre nt Smoker eCW1 ([facility]) Smoking 02/08/2021 12:00:00 AM EDT Current Smoker completed Curre nt Smoker eCW1 ([facility]) Smoking 02/08/2021 12:00:00 AM EDT Current Smoker completed Curre nt Smoker eCW1 ([facility]) Smoking 02/08/2021 12:00:00 AM EDT Current Smoker completed Curre nt Smoker eCW1 ([facility]) Smoking 01/02/2021 12:00:00 AM EDT Current Smoker completed Curre nt Smoker eCW1 ([facility]) Smoking 01/02/2021 12:00:00 AM EDT Current Smoker completed Curre nt Smoker eCW1 ([facility]) Smoking 01/02/2021 12:00:00 AM EDT Current Smoker completed Curre nt Smoker eCW1 ([facility]) Smoking 01/02/2021 12:00:00 AM EDT Current Smoker completed Curre nt Smoker eCW1 ([facility]) Smoking 10/26/2020 12:00:00 AM EST Current Smoker completed Curre nt Smoker eCW1 ([facility]) Smoking 10/26/2020 12:00:00 AM EST Current Smoker completed Curre nt Smoker eCW1 ([facility]) Smoking 10/26/2020 12:00:00 AM EST Current Smoker completed Curre nt Smoker eCW1 ([facility]) Smoking 10/26/2020 12:00:00 AM EST Current Smoker completed [facility] [facility]) Smoking 10/26/2020 12:00:00 AM EST Current Smoker completed Curre nt Smoker eCW1 ([facility]) Smoking 10/26/2020 12:00:00 AM EST Current Smoker completed Curre nt Smoker eCW1 ([facility]) Smoking 10/26/2020 12:00:00 AM EST Current Smoker completed Curre nt Smoker eCW1 ([facility]) Smoking 10/26/2020 12:00:00 AM EST Current Smoker completed Curre nt Smoker eCW1 ([facility]) Smoking 10/26/2020 12:00:00 AM EST Current Smoker completed Curre nt Smoker eCW1 ([facility]) Smoking 09/19/2020 12:00:00 AM EST Current Smoker completed Curre nt Smoker eCW1 ([facility]) Smoking 09/12/2020 12:00:00 AM EST Current Smoker completed Curre nt Smoker eCW1 ([facility]) Vital Signs ID Date Data Source UNK Name Value Range Interpretation Code Description Data Source(s) Body weight 99.2 [lb_av] 99.2 [lb_av] eCW1 ([facility]) Body height [in_i] eCW1 ([facility]) Body mass index (BMI) [Ratio] 17.16 kg/m2 17.16 kg/m2 eCW1 ([facility]) Heart rate 101 /min 101 /min eCW1 ([facility]) Respiratory rate 18 /min 18 /min eCW1 ([facility]) Body temperature 97.8 [degF] 97.8 [degF] eCW1 ( [facility]) Systolic blood pressure 98 mm[Hg] 98 mm[Hg] e CW1 ([facility]) Diastolic blood pressure 68 mm[Hg] 68 mm[Hg] eCW1 ([facility]) Heart rate 103 /min 103 /min eCW1 ([facility]) Respiratory rate 18 /min 18 /min eCW1 ([facility]) Body temperature 98.7 [degF] 98.7 [degF] eCW1 ( [facility]) Systolic blood pressure 110 mm[Hg] 110 mm[Hg] e CW1 ([facility]) Diastolic blood pressure 80 mm[Hg] 80 mm[Hg] eCW1 ([facility]) Body weight 99.2 [lb_av] 99.2 [lb_av] eCW1 ([facility]) Body height [in_i] eCW1 ([facility]) Body mass index (BMI) [Ratio] 17.16 kg/m2 17.16 kg/m2 eCW1 ([facility]) Body weight 99 [lb_av] 99 [lb_av] eCW1 ([facility]) Body height [in_i] eCW1 ([facility]) Body mass index (BMI) [Ratio] 17.12 kg/m2 17.12 kg/m2 eCW1 ([facility]) Heart rate 114 /min 114 /min eCW1 ([facility]) Respiratory rate 18 /min 18 /min eCW1 ([facility]) Body temperature 97.8 [degF] 97.8 [degF] eCW1 ( [facility]) Systolic blood pressure 98 mm[Hg] 98 mm[Hg] e CW1 ([facility]) Diastolic blood pressure 60 mm[Hg] 60 mm[Hg] eCW1 ([facility]) Body weight 103 [lb_av] 103 [lb_av] eCW1 ([facility]) Body height [in_i] eCW1 ([facility]) Body mass index (BMI) [Ratio] 17.82 kg/m2 17.82 kg/m2 eCW1 ([facility]) Heart rate 105 /min 105 /min eCW1 ([facility]) Respiratory rate 18 /min 18 /min eCW1 ([facility]) Body temperature 97.5 [degF] 97.5 [degF] eCW1 ( [facility]) Systolic blood pressure 140 mm[Hg] 140 mm[Hg] e CW1 ([facility]) Diastolic blood pressure 102 mm[Hg] 102 mm[Hg] eCW1 ([facility]) Body weight 99.2 [lb_av] 99.2 [lb_av] eCW1 ([facility]) Body height [in_i] eCW1 ([facility]) Body mass index (BMI) [Ratio] 17.16 kg/m2 17.16 kg/m2 eCW1 ([facility]) Heart rate 96 /min 96 /min eCW1 ([facility]) Respiratory rate 17 /min 17 /min eCW1 ([facility]) Body temperature 97.1 [degF] 97.1 [degF] eCW1 ( [facility]) Systolic blood pressure 160 mm[Hg] 160 mm[Hg] e CW1 ([facility]) Diastolic blood pressure 100 mm[Hg] 100 mm[Hg] eCW1 ([facility]) Body weight 98.6 [lb_av] 98.6 [lb_av] eCW1 ([facility]) Body temperature 97.3 [degF] 97.3 [degF] eCW1 ( [facility]) Systolic blood pressure 222 mm[Hg] 222 mm[Hg] e CW1 ([facility]) Body height [in_i] eCW1 ([facility]) Diastolic blood pressure 150 mm[Hg] 150 mm[Hg] eCW1 ([facility]) Body mass index (BMI) [Ratio] 17.06 kg/m2 17.06 kg/m2 eCW1 ([facility]) Heart rate 120 /min 120 /min eCW1 ([facility]) Respiratory rate 17 /min 17 /min eCW1 ([facility]) Patient Treatment Plan of Care Planned Activity Planned Date Details Description Data Source (s) Lisinopril 20 MG Oral Tablet 05/26/2021 12:00:00 AM EDT eCW1 ([facility]) Lisinopril 20 MG Oral Tablet 05/26/2021 12:00:00 AM EDT eCW1 ([facility]) Lisinopril 20 MG Oral Tablet 05/26/2021 12:00:00 AM EDT eCW1 ([facility]) Triamcinolone Acetonide 1 MG/ML Topical Cream 10/26/2020 12:00:00 A M EST eCW1 ([facility]) Triamcinolone Acetonide 1 MG/ML Topical Cream 10/26/2020 12:00:00 A M EST eCW1 ([facility]) Triamcinolone Acetonide 1 MG/ML Topical Cream 10/26/2020 12:00:00 A M EST eCW1 ([facility]) Triamcinolone Acetonide 1 MG/ML Topical Cream 10/26/2020 12:00:00 A M EST eCW1 ([facility]) Triamcinolone Acetonide 1 MG/ML Topical Cream 10/26/2020 12:00:00 A M EST eCW1 ([facility]) Triamcinolone Acetonide 1 MG/ML Topical Cream 10/26/2020 12:00:00 A M EST eCW1 ([facility]) Triamcinolone Acetonide 1 MG/ML Topical Cream 10/26/2020 12:00:00 A M EST eCW1 ([facility]) Triamcinolone Acetonide 1 MG/ML Topical Cream 10/26/2020 12:00:00 A M EST eCW1 ([facility]) Triamcinolone Acetonide 1 MG/ML Topical Cream 10/26/2020 12:00:00 A M EST eCW1 ([facility]) Labetalol hydrochloride 200 MG Oral Tablet 09/19/2020 12:00:[address] eCW1 ([facility])
[2021-08-19] MEDS ORDERED: LISI20TA33 PO (08:54)
[2021-08-19] MEDS ORDERED: LABE100T4 PO (08:54)
[2021-08-19] MEDS ORDERED: HYDR-3910 PO (08:54)
--- OUTSIDE RECORDS SUMMARY | 2021-08-19 09:43 | CCD ---
Author Author [facility] Organization [facility] Address Unknown Phone Unavailable Support Name Relationship Address Phone JOANNA RODRIGUEZ Next Of Kin [address] [place] [address] REECE PICKERING Next Of Kin [address] [place] [address] DISABLED Next Of Kin Unknown Unavailable UE Next Of Kin Unknown Unavailable [place] [address] LELAND FRANCOIS Next Of Kin [address] [place] [address] ANUSHASUKHIKELL Next Of Kin [address] [place] [address] JOANNA RODRIGUEZ [address] [place] [address] Unavailable julietdarenleland ECON [address] [place] [address] Unavailable Re-disclosure Warning The records that you [...] is protected by Article 27-F of the [facility] Public Health law. If you continue you may have access to information: Regarding HIV / AIDS; Provided by facilities licensed or operated by the [facility] Office of Mental Health; or Provided by the [facility] Office for People With Developmental Disabilities. If such information is present, then the following [facility] mandated warning applies: This information [...] law may result in a fine or alf sentence or both. A general authorization for the release of medical or other information is NOT sufficient authorization for further disc losure. Family History Family Member Name Family Member Gender Family Member Status Date o f Status Description Data Source(s) Unknown Unknown Problem [facility] ([facility] Encounters Encounter Providers Location Date Indications Data Source(s ) Unknown [address] [facility] [place] [address] 07/25/2021 12:00:00 AM EDT eCW1 ([facility]) Unknown [address] [facility] [place] [address] 06/26/2021 12:00:00 AM EDT [facility] [address] [facility] [place] [address] 05/22/2021 12:00:00 AM EDT eCW1 ([facility]) Unknown [address] [facility] [place] [address] 05/15/2021 12:00:00 AM EDT eCW1 ([facility]) Unknown [address] [facility] [place] [address] 03/24/2021 12:00:00 AM EDT eCW1 ([facility]) Outpatient [address] [facility] [place] [address] 03/20/2021 12:00:00 AM EDT eCW1 [facility] Unknown [address] [facility] [place] [address] 03/04/2021 12:00:00 AM EDT eCW1 [facility] Unknown [address] [facility] [place] [address] 02/20/2021 12:00:00 AM EDT eCW1 ([facility]) [place] [address] [facility] [place] [address] 02/08/2021 12:00:00 AM EDT eCW1 ([facility]) Unknown [address] [facility] [address] 01/19/2021 12:00:00 AM EDT eCW1 ([facility]) Unknown [address] [facility] [address] 01/10/2021 12:00:00 AM EDT eCW1 ([facility]) Unknown [address] [facility] [place] [address] 01/04/2021 12:00:00 AM EDT eCW1 ([facility]) [place] [address] [facility] [address] 12/29/2020 12:00:00 AM EDT eCW1 ([facility]) Unknown [address] [facility] [address] 12/26/2020 12:00:00 AM EDT eCW1 ([facility]) Unknown [address] [facility] [place] [address] 12/15/2020 12:00:00 AM EDT eCW1 ([facility]) Unknown [address] [facility] [place] [address] 12/14/2020 12:00:00 AM EDT eCW1 ([facility]) Unknown [address] [facility] [place] [address] 12/05/2020 12:00:00 AM EST eCW1 ([facility]) Unknown [address] [facility] [place] [address] 11/24/2020 12:00:00 AM EST eCW1 ([facility]) Unknown [address] [facility] [place] [address] 11/14/2020 12:00:00 AM EST eCW1 ([facility]) Unknown [address] [facility] [place] [address] 11/10/2020 12:00:00 AM EST eCW1 ([facility]) Outpatient [address] [facility] [address] 10/26/2020 12:00:00 AM EST eCW1 ([facility]) Unknown [address] [facility] [address] 10/14/2020 12:00:00 AM EST eCW1 ([facility]) Outpatient [address] [facility] [address] 09/19/2020 12:00:00 AM EST eCW1 ([facility]) Outpatient [address] [facility] [address] 09/12/2020 12:00:00 AM EST eCW1 ([facility]) Immunizations Vaccine Date Status Description Data Source(s) COVID-19 VACCINE Moderna 08/10/2021 12:00:00 AM EST completed [place] Vaccine Series Complete: YESThis Data wa s Submitted to [facility] Via [employer]. COVID-19 VACCINE Moderna 01/11/2021 12:00:00 AM EDT completed [place] Vaccine Series Complete: YESThis Data wa s Submitted to [facility] Via [employer]. COVID-19 VACCINE Moderna 12/14/2020 12:00:00 AM EDT completed [place] Vaccine Series Complete: NOThis Data was Submitted to [facility] Via [employer]. Medications Medication Brand Name Start Date Product Form Dose Route Admi nistrative Instructions Pharmacy Instructions Status Indications Reaction Description Data Source(s) Lisinopril 20 MG Oral Tablet Lisinopril 20 MG 05/26/2021 12:00:00 A M EDT 1.0 {tablet} active Lisinopril 20 MG eCW1 ( [facility]) Lisinopril 20 MG Oral Tablet Lisinopril 20 MG 05/26/2021 12:00:00 A M EDT 1.0 {tablet} active Lisinopril 20 MG eCW1 ( [facility]) Lisinopril 20 MG Oral Tablet Lisinopril 20 MG 05/26/2021 12:00:00 A M EDT 1.0 {tablet} active Lisinopril 20 MG eCW1 ( [facility]) 20 mg 05/23/2021 12:00:00 AM EDT tablet [...] TWICE A DAY WITH FOOD SOLD: 12/07/2020 [facility] Hydralazine Hydrochloride 25 MG Oral Tablet HYDRALAZINE [...] active Triamcinolone Acetonide 0 .1 % eCW1 ([facility]) Triamcinolone Acetonide 1 MG/ML Topical Cream Triamcin olone Acetonide 0.1 % Triamcinolone Acetonide 0.1 % 10/26/2020 12:00:00 AM EST 1.0 {appli cation} active Triamcinolone Acetonide 0 .1 % eCW1 ([facility]) Triamcinolone Acetonide 1 MG/ML Topical Cream Triamcin olone Acetonide 0.1 % Triamcinolone Acetonide 0.1 % 10/26/2020 12:00:00 AM EST 1.0 {appli cation} active Triamcinolone Acetonide 0 .1 % eCW1 ([facility]) Triamcinolone Acetonide 1 MG/ML Topical Cream Triamcin olone Acetonide 0.1 % Triamcinolone Acetonide 0.1 % 10/26/2020 12:00:00 AM EST 1.0 {appli cation} active Triamcinolone Acetonide 0 .1 % eCW1 ([facility]) 0.1 % 10/26/2020 12:00:00 AM EST cream 15 APPLY TO AFFECTED AREA(S) TWO TIMES A DAY APPLY TO AFFECTED AREA(S) TWO TIMES A DAY SOLD: 10/27/2020 [facility] Triamcinolone Acetonide 1 MG/ML Topical Cream Triamcin olone Acetonide 0.1 % Triamcinolone Acetonide 0.1 % 10/26/2020 12:00:00 AM EST 1.0 {appli cation} active Triamcinolone Acetonide 0 .1 % eCW1 ([facility]) Triamcinolone Acetonide 1 MG/ML Topical Cream Triamcin olone Acetonide 0.1 % Triamcinolone Acetonide 0.1 % 10/26/2020 12:00:00 AM EST 1.0 {appli cation} active Triamcinolone Acetonide 0 .1 % eCW1 ([facility]) Triamcinolone Acetonide 1 MG/ML Topical Cream Triamcin olone Acetonide 0.1 % Triamcinolone Acetonide 0.1 % 10/26/2020 12:00:00 AM EST 1.0 {appli cation} active Triamcinolone Acetonide 0 .1 % eCW1 ([facility]) Triamcinolone Acetonide 1 MG/ML Topical Cream Triamcin olone Acetonide 0.1 % Triamcinolone Acetonide 0.1 % 10/26/2020 12:00:00 AM EST 1.0 {appli cation} active Triamcinolone Acetonide 0 .1 % eCW1 ([facility]) Triamcinolone Acetonide 1 MG/ML Topical Cream Triamcin olone Acetonide 0.1 % Triamcinolone Acetonide 0.1 % 10/26/2020 12:00:00 AM EST 1.0 {appli cation} active Triamcinolone Acetonide 0 .1 % eCW1 ([facility]) Triamcinolone Acetonide 1 MG/ML Topical Cream Triamcin olone Acetonide 0.1 % Triamcinolone Acetonide 0.1 % 10/26/2020 12:00:00 AM EST 1.0 {appli cation} active Triamcinolone Acetonide 0 .1 % eCW1 ([facility]) Triamcinolone Acetonide 1 MG/ML Topical Cream Triamcin olone Acetonide 0.1 % Triamcinolone Acetonide 0.1 % 10/26/2020 12:00:00 AM EST 1.0 {appli cation} active Triamcinolone Acetonide 0 .1 % eCW1 ([facility]) Triamcinolone Acetonide 1 MG/ML Topical Cream Triamcin olone Acetonide 0.1 % Triamcinolone Acetonide 0.1 % 10/26/2020 12:00:00 AM EST 1.0 {appli cation} active Triamcinolone Acetonide 0 .1 % eCW1 ([facility]) Triamcinolone Acetonide 1 MG/ML Topical Cream Triamcin olone Acetonide 0.1 % Triamcinolone Acetonide 0.1 % 10/26/2020 12:00:00 AM EST 1.0 {appli cation} active Triamcinolone Acetonide 0 .1 % eCW1 ([facility]) Triamcinolone Acetonide 1 MG/ML Topical Cream Triamcin olone Acetonide 0.1 % Triamcinolone Acetonide 0.1 % 10/26/2020 12:00:00 AM EST 1.0 {appli cation} active Triamcinolone Acetonide 0 .1 % eCW1 ([facility]) Triamcinolone Acetonide 1 MG/ML Topical Cream Triamcin olone Acetonide 0.1 % Triamcinolone Acetonide 0.1 % 10/26/2020 12:00:00 AM EST 1.0 {appli cation} active Triamcinolone Acetonide 0 .1 % eCW1 ([facility]) Triamcinolone Acetonide 1 MG/ML Topical Cream Triamcin olone Acetonide 0.1 % Triamcinolone Acetonide 0.1 % 10/26/2020 12:00:00 AM EST 1.0 {appli cation} active Triamcinolone Acetonide 0 .1 % eCW1 ([facility]) Triamcinolone Acetonide 1 MG/ML Topical Cream Triamcin olone Acetonide 0.1 % Triamcinolone Acetonide 0.1 % 10/26/2020 12:00:00 AM EST 1.0 {appli cation} active Triamcinolone Acetonide 0 .1 % eCW1 ([facility]) Triamcinolone Acetonide 1 MG/ML Topical Cream Triamcin olone Acetonide 0.1 % Triamcinolone Acetonide 0.1 % 10/26/2020 12:00:00 AM EST 1.0 {appli cation} active Triamcinolone Acetonide 0 .1 % eCW1 ([facility]) Triamcinolone Acetonide 1 MG/ML Topical Cream Triamcin olone Acetonide 0.1 % Triamcinolone Acetonide 0.1 % 10/26/2020 12:00:00 AM EST 1.0 {appli cation} active Triamcinolone Acetonide 0 .1 % eCW1 ([facility]) Triamcinolone Acetonide 1 MG/ML Topical Cream Triamcin olone Acetonide 0.1 % Triamcinolone Acetonide 0.1 % 10/26/2020 12:00:00 AM EST 1.0 {appli cation} active Triamcinolone Acetonide 0 .1 % eCW1 ([facility]) Triamcinolone Acetonide 1 MG/ML Topical Cream Triamcin olone Acetonide 0.1 % Triamcinolone Acetonide 0.1 % 10/26/2020 12:00:00 AM EST 1.0 {appli cation} active Triamcinolone Acetonide 0 .1 % eCW1 ([facility]) Triamcinolone Acetonide 1 MG/ML Topical Cream Triamcin olone Acetonide 0.1 % Triamcinolone Acetonide 0.1 % 10/26/2020 12:00:00 AM EST 1.0 {appli cation} active eCW1 ([facility]) 20 mg 10/14/2020 12:00:00 AM EST tablet [...] TABLET BY MOUTH EVERY DAY SOLD: 04/18/2021 [facility] 20 mg 10/14/2020 12:00:00 AM EST [...] activ e Labetalol HCl 200 MG eCW1 ([facility]) 10 mg 09/19/2020 12:00:00 AM EST tablet 30 TAKE ONE TABLET BY MOUTH EVERY DAY TAKE ONE TABLET BY MOUTH EVERY DAY SOLD: 02/01/2021 [facility] 10 mg 09/19/2020 12:00:00 AM EST tablet 30 TAKE ONE TABLET BY MOUTH EVERY DAY TAKE ONE TABLET BY MOUTH EVERY DAY SOLD: 09/19/2020 [facility] 200 mg 09/19/2020 12:00:00 AM EST [...] relationship to graham Policy [place] Plan Information [facility] COMMUNITY PLAN [facility] [id number] SP [id number] [facility]) O [id number] S [id number] ANSI-Medicaid [id number] ANSI-Medicaid [id number] ANSI-Medicaid [id number] ANSI-Medicaid [id number] ANSI-Medicaid [id number] ANSI-Medicaid [id number] ANSI-Medicaid [id number] ANSI-Medicaid [id number] ANSI-Medicaid [id number] ANSI-Medicaid [id number] ANSI-Medicaid [id number] ANSI-Medicaid [id number] ANSI-Medicaid [id number] ANSI-Medicaid [id number] [employer] COMMUNITY PLAN MCDO [id number] SP [id number] [facility] O [id number] S [id number] [facility] COMMUNITY PLAN [facility] [id number] SP [id number] [facility] Community Plan Health Maintenance Organization (HMO) [id number] Self [facility] [id number] SP [id number] [employer] PLAN [id number] SP [id number] HMO BLUE [id number] SP [id number] Problems, Conditions, and Diagnoses Code Display Name Description Problem Type Effective Dates Data Source(s) H54.7 [id number] Decreased visual acuity Problem 10/26/2020 1 2:00:00 AM EST eCW1 ([facility]) Surgeries/Procedures No Information Results No Information Social History Code Duration Value Status Description Data Source(s ) Smoking 07/15/2021 12:00:00 AM EDT Current Smoker completed Curre nt Smoker eCW1 ([facility]) Smoking 03/20/2021 12:00:00 AM EDT Current Smoker completed Curre nt Smoker eCW1 ([facility]) Smoking 03/20/2021 12:00:00 AM EDT Current Smoker completed Curre nt Smoker eCW1 ([facility]) Smoking 03/20/2021 12:00:00 AM EDT Current Smoker completed Curre nt Smoker eCW1 ([facility]) Smoking 03/20/2021 12:00:00 AM EDT Current Smoker completed Curre nt Smoker eCW1 ([facility]) Smoking 03/20/2021 12:00:00 AM EDT Current Smoker completed Curre nt Smoker eCW1 ([facility]) Smoking 02/08/2021 12:00:00 AM EDT Current Smoker completed Curre nt Smoker eCW1 ([facility]) Smoking 02/08/2021 12:00:00 AM EDT Current Smoker completed Curre nt Smoker eCW1 ([facility]) Smoking 02/08/2021 12:00:00 AM EDT Current Smoker completed Curre nt Smoker eCW1 ([facility]) Smoking 01/02/2021 12:00:00 AM EDT Current Smoker completed Curre nt Smoker eCW1 ([facility]) Smoking 01/02/2021 12:00:00 AM EDT Current Smoker completed Curre nt Smoker eCW1 ([facility]) Smoking 01/02/2021 12:00:00 AM EDT Current Smoker completed Curre nt Smoker eCW1 ([facility]) Smoking 01/02/2021 12:00:00 AM EDT Current Smoker completed Curre nt Smoker eCW1 ([facility]) Smoking 10/26/2020 12:00:00 AM EST Current Smoker completed Curre nt Smoker eCW1 ([facility]) Smoking 10/26/2020 12:00:00 AM EST Current Smoker completed Curre nt Smoker eCW1 ([facility]) Smoking 10/26/2020 12:00:00 AM EST Current Smoker completed Curre nt Smoker eCW1 ([facility]) Smoking 10/26/2020 12:00:00 AM EST Current Smoker completed Curre nt Smoker eCW1 ([facility]) Smoking 10/26/2020 12:00:00 AM EST Current Smoker completed Curre nt Smoker eCW1 ([facility]) Smoking 10/26/2020 12:00:00 AM EST Current Smoker completed Curre nt Smoker eCW1 ([facility]) Smoking 10/26/2020 12:00:00 AM EST Current Smoker completed Curre nt Smoker eCW1 ([facility]) Smoking 10/26/2020 12:00:00 AM EST Current Smoker completed Curre nt Smoker eCW1 ([facility]) Smoking 10/26/2020 12:00:00 AM EST Current Smoker completed Curre nt Smoker eCW1 ([facility]) Smoking 09/19/2020 12:00:00 AM EST Current Smoker completed Curre nt Smoker eCW1 ([facility]) Smoking 09/12/2020 12:00:00 AM EST Current Smoker completed Curre nt Smoker eCW1 ([facility]) Vital Signs ID Date Data Source UNK Name Value Range Interpretation Code Description Data Source(s) Body weight 99.2 [lb_av] 99.2 [lb_av] eCW1 ([facility]) Body height [in_i] eCW1 ([facility]) Body mass index (BMI) [Ratio] 17.16 kg/m2 17.16 kg/m2 W1 ([facility]) Heart rate 101 /min 101 /min eCW1 ([facility]) Respiratory rate 18 /min 18 /min eCW1 ([facility]) Body temperature 97.8 [degF] 97.8 [degF] eCW1 ( [facility]) Systolic blood pressure 98 mm[Hg] 98 mm[Hg] e CW1 ([facility]) Diastolic blood pressure 68 mm[Hg] 68 mm[Hg] eCW1 ([facility]) Body weight 99.2 [lb_av] 99.2 [lb_av] eCW1 ([facility]) Body height [in_i] eCW1 ([facility]) Body mass index (BMI) [Ratio] 17.16 kg/m2 17.16 kg/m2 eCW1 ([facility]) Heart rate 103 /min 103 /min eCW1 ([facility]) Respiratory rate 18 /min 18 /min eCW1 ([facility]) Body temperature 98.7 [degF] 98.7 [degF] eCW1 ( [facility]) Systolic blood pressure 110 mm[Hg] 110 mm[Hg] e CW1 ([facility]) Diastolic blood pressure 80 mm[Hg] 80 mm[Hg] eCW1 ([facility]) Body weight 99 [lb_av] 99 [lb_av] eCW1 ([facility]) Body height [in_i] eCW1 ([facility]) Body mass index (BMI) [Ratio] 17.12 kg/m2 17.12 kg/m2 eCW1 ([facility]) Heart rate 114 /min 114 /min eCW1 ([facility]) Respiratory rate 18 /min 18 /min eCW1 ([facility]) Body temperature 97.8 [degF] 97.8 [degF] eCW1 ( [facility]) Systolic blood pressure 98 mm[Hg] 98 mm[Hg] e CW1 ([facility]) Diastolic blood pressure 60 mm[Hg] 60 mm[Hg] eCW1 ([facility]) Body weight 103 [lb_av] 103 [lb_av] eCW1 ([facility]) Body height [in_i] eCW1 ([facility]) Body mass index (BMI) [Ratio] 17.82 kg/m2 17.82 kg/m2 eCW1 ([facility]) Heart rate 105 /min 105 /min eCW1 ([facility]) Respiratory rate 18 /min 18 /min eCW1 ([facility]) Body temperature 97.5 [degF] 97.5 [degF] eCW1 ( [facility]) Systolic blood pressure 140 mm[Hg] 140 mm[Hg] e CW1 ([facility]) Diastolic blood pressure 102 mm[Hg] 102 mm[Hg] eCW1 ([facility]) Body weight 99.2 [lb_av] 99.2 [lb_av] eCW1 ([facility]) Body height [in_i] eCW1 ([facility]) Body mass index (BMI) [Ratio] 17.16 kg/m2 17.16 kg/m2 eCW1 ([facility]) Heart rate 96 /min 96 /min eCW1 ([facility]) Respiratory rate 17 /min 17 /min eCW1 ([facility]) Body temperature 97.1 [degF] 97.1 [degF] eCW1 ( [facility]) Systolic blood pressure 160 mm[Hg] 160 mm[Hg] e CW1 ([facility]) Diastolic blood pressure 100 mm[Hg] 100 mm[Hg] eCW1 ([facility]) Body weight 98.6 [lb_av] 98.6 [lb_av] eCW1 ([facility]) Body height [in_i] eCW1 ([facility]) Body mass index (BMI) [Ratio] 17.06 kg/m2 17.06 kg/m2 eCW1 ([facility]) Body temperature 97.3 [degF] 97.3 [degF] eCW1 ( [facility]) Diastolic blood pressure 150 mm[Hg] 150 mm[Hg] eCW1 ([facility]) Heart rate 120 /min 120 /min eCW1 ([facility]) Respiratory rate 17 /min 17 /min eCW1 ([facility]) Systolic blood pressure 222 mm[Hg] 222 mm[Hg] e CW1 ([facility]) Patient Treatment Plan of Care Planned Activity Planned Date Details Description Data Source (s) Lisinopril 20 MG Oral Tablet 05/26/2021 12:00:00 AM EDT eCW1 ([facility]) Lisinopril 20 MG Oral Tablet 05/26/2021 12:00:00 AM EDT eCW1 ([facility]) Lisinopril 20 MG Oral Tablet 05/26/2021 12:00:00 AM EDT eCW1 ([facility]) Triamcinolone Acetonide 1 MG/ML Topical Cream 10/26/2020 12:00:00 A M EST eCW1 ([facility]) Triamcinolone Acetonide 1 MG/ML Topical Cream 10/26/2020 12:00:00 A M EST eCW1 ([facility]) Triamcinolone Acetonide 1 MG/ML Topical Cream 10/26/2020 12:00:00 A M EST eCW1 ([facility]) Triamcinolone Acetonide 1 MG/ML Topical Cream 10/26/2020 12:00:00 A M EST eCW1 ([facility]) Triamcinolone Acetonide 1 MG/ML Topical Cream 10/26/2020 12:00:00 A M EST eCW1 ([facility]) Triamcinolone Acetonide 1 MG/ML Topical Cream 10/26/2020 12:00:00 A M EST eCW1 ([facility]) Triamcinolone Acetonide 1 MG/ML Topical Cream 10/26/2020 12:00:00 A M EST eCW1 ([facility]) Triamcinolone Acetonide 1 MG/ML Topical Cream 10/26/2020 12:00:00 A M EST eCW1 ([facility]) Triamcinolone Acetonide 1 MG/ML Topical Cream 10/26/2020 12:00:00 A M EST eCW1 ([facility]) Labetalol hydrochloride 200 MG Oral Tablet 09/19/2020 12:00:[address] eCW1 ([facility])
[2021-08-19] MEDS ORDERED: NS 1,000 ML IV ONE ×2 (10:10→11:35)
[2021-08-19] MEDS ORDERED: LABETALOL 100MG TAB PO ONE (10:10)
[2021-08-19 10:23] VITALS: BP 105/66
[2021-08-19 10:24] LABS: BASO # 0.1 10^3/uL (0.0-0.2); BASO % 0.4 % (0.0-1.0); EOS # 0.1 10^3/uL (0.0-0.5); EOS % 0.6 % (0.0-3.0); HEMATOCRIT 34.2 % (36.0-47.0); LYMPH # 3.2 10^3/uL (1.5-5.0); LYMPH % 19.7 % (24.0-44.0); MEAN CORPUSCULAR HEMOGLOBIN 29.6 pg (27.0-33.0); MEAN CORPUSCULAR HGB CONC 32.2 g/dl (32.0-36.5); MEAN CORPUSCULAR VOLUME 91.9 fl (80.0-96.0); MONO # 0.7 10^3/uL (0.0-0.8); MONO % 4.3 % (2.0-8.0); NEUTROPHILS # 12.1 10^3/uL (1.5-8.5); NEUTROPHILS % 74.6 % (36.0-66.0); PLATELET COUNT, AUTOMATED 306 10^3/uL (150-450); RED BLOOD COUNT 3.72 10^6/uL (4.00-5.40); WHITE BLOOD COUNT 16.2 10^3/uL (4.0-10.0)
[2021-08-19 10:34] LABS: INR 0.98; PROTHROMBIN TIME 13.4 SECONDS (12.7-14.5)
[2021-08-19 10:35] LABS: PARTIAL THROMBOPLASTIN TIME 27.5 SECONDS (25.9-37.0)
[2021-08-19] MEDS ORDERED: PHENYLEPHRINE 0.5% NASAL SPRAY 15 ML ONE (11:00)
[2021-08-19 11:16] LABS: ALBUMIN 3.5 GM/DL (3.2-5.2); ALT/SGPT 17 U/L (12-78); BILIRUBIN,TOTAL 0.3 MG/DL (0.2-1.0); BLOOD UREA NITROGEN 83 MG/DL (7-18); CALCIUM LEVEL 9.6 MG/DL (8.5-10.1); CARBON DIOXIDE LEVEL 22 MEQ/L (21-32); CHLORIDE LEVEL 108 MEQ/L (98-107); CREATININE FOR GFR 2.82 MG/DL (0.55-1.30); ETHYL ALCOHOL (ETHANOL) < 0.003 % (0.000-0.010); FREE THYROXINE INDEX 3.1 % (1.3-4.8); GLOMERULAR FILTRATION RATE 18.7 (>51); GLUCOSE, FASTING 114 MG/DL (70-100); POTASSIUM SERUM 4.8 MEQ/L (3.5-5.1); SODIUM LEVEL 138 MEQ/L (136-145); T UPTAKE 34 % (30-39); THYROID STIMULATING HORMONE 0.722 uIU/ML (0.358-3.740); THYROXINE (T4) 9.1 UG/DL (4.5-12.0); TOTAL PROTEIN 6.4 GM/DL (6.4-8.2)
--- NOTE | 2021-08-19 11:56 | REP ---
INDICATION: leukocytosis COMPARISON: 08/20/2016 TECHNIQUE: Portable AP view of the chest FINDINGS: The mediastinum and cardiac silhouette are stable and within normal limits for portable technique. The lung lujan are clear without acute consolidation, effusion, or pneumothorax. Skeletal structures are intact. IMPRESSION: No acute cardiopulmonary process appreciated. <Electronically signed by Rayshawn Martinez > 08/19/21 [id number]
[2021-08-19 12:47] LABS: RSV AMPLIFICATION NEGATIVE (NEGATIVE)
[2021-08-19] MEDS ORDERED: ACETAMINOPHEN 325 MG TAB PO ONE (13:25)
[2021-08-19 13:41] VITALS: BP 141/88
[2021-08-19] MEDS ORDERED: TRANEXAMIC ACID 100 MG/ML 10ML VIAL ONE (13:45)
--- NOTE | 2021-08-20 09:00 | ECGEPIP ---
[facility] - ED Test Date: 2021-08-19 Pat Name: CHIVO SHEIKH Department: Room: - Gender: Female Tap Dancer: HARPAL : 1970 Requested By: Nieves Whitley PA-C Order Number: [id number] Reading MD: Tianna Alexandre Measurements Intervals Hunt Rate: 127 P: 86 AL: 148 QRS: -30 QRSD: 84 T: 93 QT: 294 QTc: 427 Interpretive Statements Sinus tachycardia Biatrial enlargement Left axis deviation Pulmonary disease pattern Minimal voltage criteria for LVH, may be normal variant ( Shirley product ) Nonspecific T wave abnormality compared 08/20/16 Electronically Signed on 08-20-2021 8:59:56 EST by Tianna Alexandre
== END 2021-08-19 18:49 | disposition home or self-care (01) ==
LOC: M ED 08:39
DX: R04.0 Epistaxis (principal); I12.9 Hypertensive chronic kidney disease with stage 1 through stage 4 chronic kidney disease, or unspecified chronic kidney disease; N18.9 Chronic kidney disease, unspecified; E78.5 Hyperlipidemia, unspecified; F17.200 Nicotine dependence, unspecified, uncomplicated; Z88.6 Allergy status to analgesic agent; Z79.82 Long term (current) use of aspirin; Z79.899 Other long term (current) drug therapy

== ENCOUNTER 2021-08-21 13:27 | Inpatient (IN) | payer OTHER ==
[~2021-08-21] VITALS: Ht 162.6 cm; Wt 49.8 kg
[2021-08-21] VITALS (10 sets, daily range): BP systolic 112–139; BP diastolic 69–86
[~2021-08-21 13:27] MED LIST changes: +HYDR-3910 PO; +LABE100T4 PO; +LISI20TA33 PO
[2021-08-21] MEDS ORDERED: NS 1,000 ML IV ONE (14:05)
[2021-08-21 14:50] LABS: LYMPH # 1.2 10^3/uL (1.5-5.0); LYMPH % 10.3 % (24.0-44.0); MEAN CORPUSCULAR HEMOGLOBIN 28.6 pg (27.0-33.0); MEAN CORPUSCULAR HGB CONC 30.4 g/dl (32.0-36.5); MONO # 0.5 10^3/uL (0.0-0.8); MONO % 4.5 % (2.0-8.0); NEUTROPHILS # 9.7 10^3/uL (1.5-8.5); NEUTROPHILS % 84.4 % (36.0-66.0); PLATELET COUNT, AUTOMATED 185 10^3/uL (150-450); RED BLOOD COUNT 0.84 10^6/uL (4.00-5.40); WHITE BLOOD COUNT 11.4 10^3/uL (4.0-10.0)
[2021-08-21 14:51] LABS: HEMATOCRIT 7.9 % (36.0-47.0); HEMOGLOBIN 2.4 g/dl (12.0-15.5)
[2021-08-21] MEDS ORDERED: PANTOPRAZOLE 40MG VIAL (C9113 PER 1) IV ONE (15:10)
[2021-08-21 15:14] LABS: ALBUMIN 2.7 GM/DL (3.2-5.2); ALT/SGPT 11 U/L (12-78); BILIRUBIN,DIRECT < 0.1 MG/DL (0.0-0.2); BILIRUBIN,TOTAL 0.3 MG/DL (0.2-1.0); BLOOD UREA NITROGEN 84 MG/DL (7-18); CALCIUM LEVEL 9.3 MG/DL (8.5-10.1); CARBON DIOXIDE LEVEL 20 MEQ/L (21-32); CHLORIDE LEVEL 114 MEQ/L (98-107); CREATININE FOR GFR 2.54 MG/DL (0.55-1.30); GLOMERULAR FILTRATION RATE 21.1 (>51); GLUCOSE, FASTING 153 MG/DL (70-100); POTASSIUM SERUM 4.5 MEQ/L (3.5-5.1); SODIUM LEVEL 142 MEQ/L (136-145); TOTAL PROTEIN 5.2 GM/DL (6.4-8.2)
[2021-08-21] MEDS ORDERED: SUCRALFATE 1 GM TAB PO ONE ×2 (15:30→15:40)
[2021-08-21 15:35] LABS: BASO % 0.1 % (0.0-1.0); LYMPH # 1.2 10^3/uL (1.5-5.0); LYMPH % 7.8 % (24.0-44.0); MEAN CORPUSCULAR HGB CONC 32.4 g/dl (32.0-36.5); MEAN CORPUSCULAR VOLUME 92.7 fl (80.0-96.0); MONO # 0.6 10^3/uL (0.0-0.8); NEUTROPHILS # 13.6 10^3/uL (1.5-8.5); NEUTROPHILS % 87.3 % (36.0-66.0); PLATELET COUNT, AUTOMATED 186 10^3/uL (150-450); WHITE BLOOD COUNT 15.6 10^3/uL (4.0-10.0)
[2021-08-21 15:42] LABS: HEMATOCRIT 13.9 % (36.0-47.0); HEMOGLOBIN 4.5 g/dl (12.0-15.5)
[2021-08-21 15:43] LABS: CK-MB VALUE MASS 2.2 NG/ML (<3.6); MB/CK RELATIVE INDEX 2.02 (< OR =4); TROPONIN I 0.02 NG/ML (< 0.10)
[2021-08-21 15:45] LABS: INR 1.09; PARTIAL THROMBOPLASTIN TIME 20.1 SECONDS (25.9-37.0); PROTHROMBIN TIME 14.5 SECONDS (12.7-14.5)
[2021-08-21 16:03] LABS: PERCENT SATURATION 9.7 % (13.2-45.0)
[2021-08-21] MEDS ORDERED: AMLO1TAB25 PO (16:12)
[2021-08-21] MEDS ORDERED: HOME MED LIST COMPLETE! XX SCH (16:15)
[2021-08-21] MEDS: PANTOPRAZOLE SODIUM 40 MG in D5W MINI-BAG PLUS 50 ML IV SCH ×2 (16:26→20:23)
[2021-08-21 16:39] LABS: FOLATE 10.7 NG/ML (>5.4)
[2021-08-21 16:51] LABS: ABG BASE EXCESS -7.7 (-2.0-2.0); ABG HCO3 16.8 MEQ/L (22.0-26.0); ABG O2 SATURATION 98.2 % (95.0-99.0); ABG PARTIAL PRESSURE CO2 29.3 mmHg (35.0-45.0); ABG PARTIAL PRESSURE O2 118.4 mmHg (75.0-100.0); ABG STANDARD HCO3 18.1 MEQ/L (22.0-26.0); ABG TOTAL CO2 17.7 MEQ/L (22.0-29.0); ABG pH (ARTERIAL) 7.376 UNITS (7.350-7.450)
[2021-08-21 16:54] LABS: RSV AMPLIFICATION NEGATIVE (NEGATIVE)
[2021-08-21] MEDS: ACETAMINOPHEN TAB 650MG DOSE (2X325MG) PO PRN (17:45)
[2021-08-21 21:51] LABS: PLATELET COUNT, AUTOMATED 137 10^3/uL (150-450)
[2021-08-21 22:00] LABS: HEMOGLOBIN 7.7 g/dl (12.0-15.5)
[2021-08-21 22:02] LABS: FIBRINOGEN 402 MG/DL (268-480); INR 1.04; PARTIAL THROMBOPLASTIN TIME 23.3 SECONDS (25.9-37.0)
[2021-08-21 22:44] LABS: D-DIMER QUANT < 270 ng/ml (<500)
[2021-08-22] VITALS (13 sets, daily range): BP systolic 133–171; BP diastolic 81–112
[2021-08-22] MEDS: PANTOPRAZOLE SODIUM 40 MG in D5W MINI-BAG PLUS 50 ML IV SCH ×2 (01:34→06:34)
[2021-08-22] MEDS: ACETAMINOPHEN TAB 650MG DOSE (2X325MG) PO PRN ×2 (02:00→11:16)
[2021-08-22 04:02] LABS: HEMATOCRIT 29.2 % (36.0-47.0)
[2021-08-22 04:11] LABS: HEMOGLOBIN 10.2 g/dl (12.0-15.5)
[2021-08-22 07:47] LABS: HEMATOCRIT 29.8 % (36.0-47.0); HEMOGLOBIN 10.2 g/dl (12.0-15.5); MEAN CORPUSCULAR HGB CONC 34.2 g/dl (32.0-36.5); MEAN CORPUSCULAR VOLUME 87.6 fl (80.0-96.0); PLATELET COUNT, AUTOMATED 141 10^3/uL (150-450); WHITE BLOOD COUNT 10.8 10^3/uL (4.0-10.0)
[2021-08-22 08:12] LABS: ALBUMIN 2.7 GM/DL (3.2-5.2); BILIRUBIN,TOTAL 0.7 MG/DL (0.2-1.0); CALCIUM LEVEL 8.7 MG/DL (8.5-10.1); CREATININE FOR GFR 1.96 MG/DL (0.55-1.30); GLOMERULAR FILTRATION RATE 28.4 (>51); POTASSIUM SERUM 3.8 MEQ/L (3.5-5.1); TOTAL PROTEIN 5.8 GM/DL (6.4-8.2)
[2021-08-22 10:43] LABS: HEMATOCRIT 31.1 % (36.0-47.0); HEMOGLOBIN 10.7 g/dl (12.0-15.5)
[2021-08-22] MEDS: PANTOPRAZOLE 40MG VIAL (C9113 PER 1) IV SCH ×2 (11:17→22:35)
[2021-08-22] MEDS ORDERED: D5W/0.9% SODIUM CHLORIDE 1,000 ML IV SCH (11:25)
[2021-08-22 17:22] LABS: HEMATOCRIT 26.8 % (36.0-47.0); HEMOGLOBIN 9.2 g/dl (12.0-15.5)
[2021-08-22] MEDS ORDERED: HYDROMORPHONE HCL 0.5 MG/ 0.5 ML SYRINGE (J1170 PER 1) IV PRN (17:25)
[2021-08-22] MEDS ORDERED: fentaNYL 100 MCG/2 ML INJECTION As Ordered ONE ×2 (19:27→20:07)
[2021-08-22] MEDS ORDERED: ROCURONIUM BROMIDE 50 MG/5 ML VIAL As Ordered ONE (19:27)
[2021-08-22] MEDS ORDERED: SUCCINYLCHOLINE 100 MG/5 ML SYRINGE (J0330) As Ordered ONE (19:27)
[2021-08-22] MEDS ORDERED: propofoL 200 MG/20 ML VIAL As Ordered ONE ×2 (19:27→21:02)
[2021-08-22] MEDS ORDERED: LIDOCAINE 2% 100MG/5ML SDV (FOR ANES.) As Ordered ONE (19:27)
[2021-08-22] MEDS ORDERED: MIDAZOLAM INJ 2MG/2ML VIAL (J2250 PER 1MG) As Ordered ONE (19:27)
[2021-08-22] MEDS ORDERED: OXYMETAZOLINE 0.05% NASAL SPRAY (AFRIN) As Ordered ONE ×2 (19:46→20:36)
[2021-08-22] MEDS ORDERED: dexameTHASONE 4 MG/ML 1ML VIAL (J1100 PER 1MG) As Ordered ONE (19:52)
[2021-08-22] MEDS ORDERED: ONDANSETRON 4MG/2ML VIAL As Ordered ONE (19:52)
[2021-08-22] MEDS ORDERED: PHENYLephrine 500MCG 5ML (100MCG/ML) SYRINGE As Ordered ONE ×3 (19:58→20:33)
[2021-08-22] MEDS ORDERED: LIDOCAINE W/EPINEPHRINE 1% 20ML VIAL As Ordered ONE (20:41)
[2021-08-22] MEDS ORDERED: SUGAMMADEX SODIUM 500 MG/5 ML VIAL (BRIDION) As Ordered ONE (21:03)
[2021-08-22] MEDS ORDERED: ACETAMINOPHEN TAB 650MG DOSE (2X325MG) PO PRN (22:40)
[2021-08-22] MEDS: LR 1,000 ML IV SCH (22:41)
[2021-08-22] MEDS ORDERED: ONDANSETRON 4MG/2ML VIAL IV PRN (22:45)
[2021-08-22 22:59] LABS: HEMATOCRIT 28.3 % (36.0-47.0); HEMOGLOBIN 9.4 g/dl (12.0-15.5)
[2021-08-23] VITALS (14 sets, daily range): BP systolic 105–172; BP diastolic 37–114
[2021-08-23] MEDS ORDERED: **hydrALAZINE** 10 MG TAB PO PRN (04:40)
[2021-08-23] MEDS: HYDROMORPHONE HCL 0.5 MG/ 0.5 ML SYRINGE (J1170 PER 1) IV PRN ×2 (05:29→10:01)
[2021-08-23 06:48] LABS: HEMATOCRIT 24.9 % (36.0-47.0); HEMOGLOBIN 8.3 g/dl (12.0-15.5); MEAN CORPUSCULAR HEMOGLOBIN 30.2 pg (27.0-33.0); MEAN CORPUSCULAR HGB CONC 33.3 g/dl (32.0-36.5); MEAN CORPUSCULAR VOLUME 90.5 fl (80.0-96.0); PLATELET COUNT, AUTOMATED 168 10^3/uL (150-450); RED BLOOD COUNT 2.75 10^6/uL (4.00-5.40); WHITE BLOOD COUNT 12.5 10^3/uL (4.0-10.0)
[2021-08-23 07:35] LABS: ALBUMIN 2.6 GM/DL (3.2-5.2); BILIRUBIN,TOTAL 0.3 MG/DL (0.2-1.0); CALCIUM LEVEL 8.5 MG/DL (8.5-10.1); CREATININE FOR GFR 1.69 MG/DL (0.55-1.30); GLOMERULAR FILTRATION RATE 33.7 (>51); POTASSIUM SERUM 4.1 MEQ/L (3.5-5.1); TOTAL PROTEIN 5.8 GM/DL (6.4-8.2)
[2021-08-23] MEDS: LR 1,000 ML IV SCH (09:59)
[2021-08-23] MEDS: PANTOPRAZOLE 40MG VIAL (C9113 PER 1) IV SCH (10:01)
[2021-08-23] MEDS ORDERED: PERCOCET 5MG/325MG TAB PO PRN (11:25)
[2021-08-23] MEDS ORDERED: ONDANSETRON 4 MG ORAL DISINTEGRATING TAB PO PRN (11:25)
[2021-08-23] MEDS ORDERED: AUGMENTIN 875 MG TAB PO SCH (11:25)
[2021-08-23] MEDS: LABETALOL 100MG TAB PO SCH ×3 (13:31→20:05)
[2021-08-23] MEDS: PERCOCET 5MG/325MG TAB PO PRN ×2 (13:32→21:29)
[2021-08-23] MEDS: AUGMENTIN 500 MG TAB PO SCH ×2 (15:30→20:05)
[2021-08-23 15:36] LABS: HEMOGLOBIN 7.1 g/dl (12.0-15.5)
[2021-08-23 18:12] LABS: C REACTIVE PROTEIN QUANTITATIV 4.67 MG/DL (0.00-0.30)
[2021-08-23 22:34] LABS: HEMATOCRIT 27.8 % (36.0-47.0)
[2021-08-23 22:36] LABS: HEMOGLOBIN 9.5 g/dl (12.0-15.5)
[2021-08-24 06:00] VITALS: BP 130/90
[2021-08-24 06:38] LABS: HEMATOCRIT 27.4 % (36.0-47.0); HEMOGLOBIN 9.2 g/dl (12.0-15.5); MEAN CORPUSCULAR HEMOGLOBIN 30.6 pg (27.0-33.0); MEAN CORPUSCULAR HGB CONC 33.6 g/dl (32.0-36.5); PLATELET COUNT, AUTOMATED 192 10^3/uL (150-450); RED BLOOD COUNT 3.01 10^6/uL (4.00-5.40)
[2021-08-24 07:16] LABS: ALBUMIN 2.3 GM/DL (3.2-5.2); BILIRUBIN,TOTAL 0.4 MG/DL (0.2-1.0); C REACTIVE PROTEIN QUANTITATIV 3.77 MG/DL (0.00-0.30); CALCIUM LEVEL 8.6 MG/DL (8.5-10.1); CREATININE FOR GFR 1.58 MG/DL (0.55-1.30); GLOMERULAR FILTRATION RATE 36.4 (>51); POTASSIUM SERUM 3.8 MEQ/L (3.5-5.1); TOTAL PROTEIN 5.2 GM/DL (6.4-8.2)
[2021-08-24] MEDS ORDERED: PANTOPRAZOLE 40MG TAB (PROTONIX) PO SCH (09:00)
[2021-08-24] MEDS: AUGMENTIN 500 MG TAB PO SCH ×2 (09:07→15:40)
[2021-08-24 09:08] VITALS: BP 129/91
[2021-08-24] MEDS: LABETALOL 100MG TAB PO SCH (09:08)
[2021-08-24] MEDS ORDERED: PERCOCET PO (10:42)
[2021-08-24] MEDS ORDERED: PANT40TA29 PO (10:42)
[2021-08-24] MEDS ORDERED: AMOX500T2 PO (10:42)
[2021-08-24 12:14] LABS: HEMATOCRIT 28.3 % (36.0-47.0); HEMOGLOBIN 9.5 g/dl (12.0-15.5)
[2021-08-24 14:00] VITALS: BP 146/83
== END 2021-08-24 16:02 | disposition home or self-care (01) | DRG 951 ==
LOC: M ED 13:27 → M ED INP 15:28 → ENRESERV 08-22 11:10 → M MSPAV 08-22 12:30
PROVIDERS: ADMIT Internal Medicine; ATTEND Internal Medicine
PROC: 30233N1 Transfusion of Nonautologous Red Blood Cells into Peripheral Vein, Percutaneous Approach (ICD-10-PCS; 2021-08-21)
PROC: 30233K1 Transfusion of Nonautologous Frozen Plasma into Peripheral Vein, Percutaneous Approach (ICD-10-PCS; 2021-08-21)
PROC: 0DB68ZX Excision of Stomach, Via Natural or Artificial Opening Endoscopic, Diagnostic (ICD-10-PCS; 2021-08-22)
PROC: 095K4ZZ Destruction of Nasal Mucosa and Soft Tissue, Percutaneous Endoscopic Approach (ICD-10-PCS; principal; 2021-08-22 14:30)
PROC: 093K8ZZ Control Bleeding in Nasal Mucosa and Soft Tissue, Via Natural or Artificial Opening Endoscopic (ICD-10-PCS; 2021-08-22 14:30)
DX: D62 Acute posthemorrhagic anemia (principal); R57.8 Other shock; K92.0 Hematemesis; N18.4 Chronic kidney disease, stage 4 (severe); R04.0 Epistaxis; Z68.1 Body mass index [BMI] 19.9 or less, adult; G40.909 Epilepsy, unspecified, not intractable, without status epilepticus; I12.9 Hypertensive chronic kidney disease with stage 1 through stage 4 chronic kidney disease, or unspecified chronic kidney disease; Z79.899 Other long term (current) drug therapy; Z88.5 Allergy status to narcotic agent; Z91.010 Allergy to peanuts; F17.200 Nicotine dependence, unspecified, uncomplicated; E78.5 Hyperlipidemia, unspecified; K29.80 Duodenitis without bleeding

== ENCOUNTER → 2021-12-12 | Outpatient (CLI) | payer OTHER ==
[~2021-12-12] MED LIST changes: +AMOX500T2 PO; +PANT40TA29 PO; +PERCOCET PO
[2021-12-12 10:41] LABS: HEMOGLOBIN A1c 5.5 %
[2021-12-12 10:59] LABS: ALBUMIN 4.2 GM/DL (3.2-5.2); BILIRUBIN,DIRECT 0.1 MG/DL (0.0-0.2); BILIRUBIN,TOTAL 0.3 MG/DL (0.2-1.0); CHOLESTEROL RISK RATIO 1.695 (<5)
== END ==
LOC: M LAB 09:42
PROVIDERS: ATTEND Family Medicine
DX: Z13.1 Encounter for screening for diabetes mellitus (principal)

== ENCOUNTER → 2022-10-11 | Outpatient (REF) | payer OTHER ==
[~2022-10-11] MED LIST changes: -LABE100T4 PO; +LABE100T6 PO
[2022-10-11 18:10] LABS: CREATININE,RANDOM URINE 132.7 MG/DL; TOTAL PROTEIN,RANDOM URINE 232.9 MG/DL (0.0-14.0)
== END ==
LOC: M LAB REF 17:06
PROVIDERS: ATTEND Nurse Practitioner Family
DX: R80.1 Persistent proteinuria, unspecified (principal)

== ENCOUNTER 2022-11-07 13:11 | Emergency (ER) | payer OTHER ==
[~2022-11-07] VITALS: Ht 162.6 cm; Wt 45.5 kg
[~2022-11-07 13:11] MED LIST changes: -AMOX875T2 PO; -ASPI81CH33 PO; -ERGO500029
[2022-11-07] MEDS ORDERED: ASPI81CH33 PO (13:25)
[2022-11-07] MEDS ORDERED: ERGO500029 (13:25)
[2022-11-07] MEDS ORDERED: AMOX875T2 PO (15:34)
[2022-11-07 15:49] VITALS: BP 180/79
== END 2022-11-07 15:56 | disposition home or self-care (01) ==
LOC: M ED 13:11
DX: S02.32XA Fracture of orbital floor, left side, initial encounter for closed fracture (principal); W01.198A Fall on same level from slipping, tripping and stumbling with subsequent striking against other object, initial encounter; E78.5 Hyperlipidemia, unspecified; G40.89 Other seizures; I10 Essential (primary) hypertension; N18.4 Chronic kidney disease, stage 4 (severe); F17.200 Nicotine dependence, unspecified, uncomplicated; F41.9 Anxiety disorder, unspecified; F10.10 Alcohol abuse, uncomplicated; Y92.009 Unspecified place in unspecified non-institutional (private) residence as the place of occurrence of the external cause; Z86.73 Personal history of transient ischemic attack (TIA), and cerebral infarction without residual deficits; Z88.6 Allergy status to analgesic agent; Z79.899 Other long term (current) drug therapy; Z79.811 Long term (current) use of aromatase inhibitors; Z79.82 Long term (current) use of aspirin; Z53.9 Procedure and treatment not carried out, unspecified reason

== ENCOUNTER → 2022-11-07 | Outpatient (CLI) | payer OTHER ==
[~2022-11-07] MED LIST changes: +AMOX875T2 PO; +ASPI81CH33 PO; +ERGO500029
== END ==
LOC: M WUC 10:16
PROVIDERS: ATTEND Physician Assistant
DX: S00.83XA Contusion of other part of head, initial encounter (principal)

== ENCOUNTER 2022-11-08 13:01 | Emergency (ER) | payer OTHER ==
[~2022-11-08] VITALS: Ht 162.6 cm; Wt 48.7 kg
[~2022-11-08 13:01] MED LIST changes: +AMOX875T2 PO; +ASPI81CH33 PO; +ERGO500029
[2022-11-08 15:56] LABS: BASO % 0.6 % (0.0-1.0); EOS # 0.2 10^3/uL (0.0-0.5); EOS % 2.4 % (0.0-3.0); HEMATOCRIT 42.4 % (36.0-47.0); HEMOGLOBIN 13.4 g/dl (12.0-15.5); LYMPH # 1.8 10^3/uL (1.5-5.0); LYMPH % 24.7 % (24.0-44.0); MEAN CORPUSCULAR HEMOGLOBIN 28.9 pg (27.0-33.0); MEAN CORPUSCULAR HGB CONC 31.6 g/dl (32.0-36.5); MEAN CORPUSCULAR VOLUME 91.6 fl (80.0-96.0); MONO # 0.4 10^3/uL (0.0-0.8); MONO % 5.9 % (2.0-8.0); NEUTROPHILS # 4.8 10^3/uL (1.5-8.5); NEUTROPHILS % 66.1 % (36.0-66.0); PLATELET COUNT, AUTOMATED 251 10^3/uL (150-450); RED BLOOD COUNT 4.63 10^6/uL (4.00-5.40); WHITE BLOOD COUNT 7.2 10^3/uL (4.0-10.0)
[2022-11-08] MEDS ORDERED: NICOTINE 21MG/24HR 1 EA TRANSDERMAL TD ONE (16:20)
[2022-11-08 16:24] LABS: RSV AMPLIFICATION NEGATIVE (NEGATIVE)
[2022-11-08 16:25] LABS: CALCIUM LEVEL 9.9 MG/DL (8.5-10.1); CREATININE FOR GFR 1.85 MG/DL (0.55-1.30); GLOMERULAR FILTRATION RATE 30.2 (>51); POTASSIUM SERUM 4.5 MMOL/L (3.5-5.1)
[2022-11-08] MEDS ORDERED: **hydrALAZINE HCL** 25 MG TAB PO ONE (16:55)
[2022-11-08] MEDS ORDERED: LABETALOL 100MG TAB PO ONE (16:55)
[2022-11-08 17:11] VITALS: BP 197/119
[2022-11-08 17:17] VITALS: BP 197/118
== END 2022-11-08 17:19 | disposition short-term general hospital (02) ==
LOC: M ED 13:01
DX: S02.32XA Fracture of orbital floor, left side, initial encounter for closed fracture (principal); I10 Essential (primary) hypertension; N18.9 Chronic kidney disease, unspecified; F17.200 Nicotine dependence, unspecified, uncomplicated; F10.10 Alcohol abuse, uncomplicated; Z88.6 Allergy status to analgesic agent; Z91.010 Allergy to peanuts; Z79.811 Long term (current) use of aromatase inhibitors; Z79.82 Long term (current) use of aspirin; Z79.899 Other long term (current) drug therapy

== ENCOUNTER → 2023-01-15 | Outpatient (REF) | payer OTHER ==
[2023-01-15 19:00] LABS: CREATININE,RANDOM URINE 144.3 MG/DL
== END ==
LOC: M LAB REF 17:11
PROVIDERS: ATTEND Nurse Practitioner Family
DX: R80.1 Persistent proteinuria, unspecified (principal)

== ENCOUNTER → 2023-07-08 | Outpatient (CLI) | payer OTHER | LOC: M WHC 07:26 | PROVIDERS: ATTEND Nurse Practitioner Family | DX: Z12.31 Encounter for screening mammogram for malignant neoplasm of breast (principal) ==

== ENCOUNTER → 2023-07-08 | Outpatient (REF) | payer OTHER | LOC: M SFHCWAGY 13:25 | PROVIDERS: ATTEND Nurse Practitioner Family | DX: Z12.4 Encounter for screening for malignant neoplasm of cervix (principal) ==

== ENCOUNTER → 2023-08-14 | Outpatient (REF) | payer OTHER ==
[2023-08-14 18:55] LABS: TOTAL PROTEIN,RANDOM URINE 8.1 MG/DL (0.0-14.0)
[2023-08-14 19:00] LABS: CREATININE,RANDOM URINE 14.5 MG/DL
== END ==
LOC: M LAB REF 16:54
PROVIDERS: ATTEND Nurse Practitioner Family
DX: R80.1 Persistent proteinuria, unspecified (principal); N18.32 Chronic kidney disease, stage 3b

== ENCOUNTER → 2024-02-21 | Outpatient (CLI) | payer OTHER ==
[~2024-02-21] MED LIST changes: -HYDR-3910 PO; +HYDR25TA87 PO
== END ==
LOC: M WHC 12:01
PROVIDERS: ATTEND Nurse Practitioner Family
DX: N18.4 Chronic kidney disease, stage 4 (severe) (principal); N28.1 Cyst of kidney, acquired

== ENCOUNTER → 2024-08-17 | Outpatient (CLI) | payer OTHER ==
[~2024-08-17] MED LIST changes: +GASTROGRAFIN SOLUTION 30ML ONE
== END ==
LOC: M PLAIMG 12:49
PROVIDERS: ATTEND Physician Assistant
DX: R19.7 Diarrhea, unspecified (principal); K80.20 Calculus of gallbladder without cholecystitis without obstruction; K57.30 Diverticulosis of large intestine without perforation or abscess without bleeding; N83.201 Unspecified ovarian cyst, right side
CPT/HCPCS: 74176; Q9963